=== PATIENT | female | born 2005 | race Caucasian/White ===

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

== ENCOUNTER 2025-05-03 09:08 | Emergency (ER) | payer OTHER, SELFPAY ==
--- OUTSIDE RECORDS SUMMARY | 2025-04-23 08:00 | XMS_ITS | Encounter Summary ---
Author Organization [facility] Healthcare Address [address] [place] [address] Care Team Providers Care Coding Compliance Auditor Name Role Phone Yadira Delgado MD Primary Care Provider [phone] Karen Colbert GLOST KILN OPERATOR Unavailable [phone] Reason for Referral * OBGYN (Urgent) - Closed Specialty Diagnoses / Procedures Referred By Contac t Referred To Contact Obstetrics and Gynecology Diagnoses Vaginal bleeding Procedures [place] OFFICE/OUTPATIENT [facility], [facility] MDM 60 MINUTES Sita Harrison NP [address] [place] [address] Phone: tel: fax: Jorge Yin, DO [address] [place] [address] Phone: tel: fax: Referral ID Status Reason Start Date Expiration Date V isits Requested Visits Authorized [id number] Closed Specialty Services Required 04/23/2025 10/20/2025 1 1 Reason for Visit * Reason Comments Annual Exam Rash on right inner thigh, cyst on right middle finger, check on that she had few months ago. Encounter Details Date Type Department Care Team (Late st Contact Info) Description 04/23/2025 8:00 AM EDT Office Visit [facility] [address] [place] [id number] Sita Harrison NP [address] [place], [place] [id number] Encounter for wellness examination (Primary Dx); Vaginal bleeding; Dermatitis Social History Tobacco Use Types Packs/Day Years Used Date Smoking Tobacco: Never Smokeless Tobacco: Never Alcohol Use Standard Drinks/Week Comments Never 0 (1 standard drink = 0.6 oz pur e alcohol) caffeine intake: 0 PHQ-2 Answer Date Recorded Patient Health Questionnaire-2 Score 0 04/23/2025 Comments Unknown Sex and Gender Information Value Date Recorded Sex Assigned at Not on file Legal Sex Female 7:25 PM EDT Gender Identity Not on file Sexual Orientation Not on file documented as of this encounter Last Filed Vital Signs Vital Sign Reading Time Taken Comments Blood Pressure 112/60 04/23/2025 8:06 AM EDT Pulse 68 04/23/2025 8:06 AM EDT Temperature - - Respiratory Rate - - Oxygen Saturation 98% 04/23/2025 8:06 AM EDT Inhaled Oxygen Concentration - - Weight 52.2 kg (115 lb) 04/23/2025 8:06 AM EDT Height - - Body Mass Index 19.43 12/05/2024 9:04 AM EDT documented in this encounter Functional Status * Over the past 2 weeks, how often have you been bothered by any of the following problems? Question Answer Date of Assessment Author Little interest or pleasure in doing things Not at all 04/23/2025 8:06 AM EDT Thu Kunz M A Feeling down, depressed, or hopeless Not at all 04/23/2025 8:06 AM EDT Thu Kunz M A Patient Health Questionnaire -2 Score 0 04/23/2025 8:06 AM EDT Thu Kunz M A documented as of this encounter Progress Notes * Sita Harrison NP - 04/23/2025 8:00 AM EDT Images from the original note were not included. Subjective ?Quick Links Last Note in Specialty Snapshot Edit RFV/CC Edit Screenings Current Meds Patient ID: Vilma Correa is a 19 y.o. female who presents for Annual Exam (Rash on right inner thigh, cyst on right middle finger, check on that she had few months ago. ). HPI History of Present Illness The patient presents for a wellness visit and abnormal uterine bleeding. She reports no chest pain or shortness of breath. Her constipation has resolved. She does not regularly see an eye doctor or dentist and declines the influenza vaccine. She has been experiencing continuous bleeding since her last visit in 01/2025, which she describes as brown in color. The bleeding varies in intensity, sometimes heavy and at other times light, but it has been consistent. She occasionally experiences cramping that lasts for a few minutes. A test conducted 3 weeks after taking the pill was negative, and subsequent tests have also been negative. She has not been sexually active recently and is open to the use of control. [facility]. She also is concerned about a rash to her inner right thigh. Has been there for about 2 months. Hasbeen using antibiotic cream and Vaseline daily. Has improved since it iniitally started but has notfully resolved. It is itchy at times but she tries to refrain from scratching. Occupation: Works at [employer]. She is saving for [employer] and planning on pursuing cosmetology. GYNECOLOGICAL HISTORY: - Frequency and Flow: Continuous bleeding since 01/2025, brown in color, varying intensity - Menstrual Pain: Occasional cramping lasting a few minutes ?Quick Review Review Full History Edit History Meds - polyethylene glycol, PEG, 3350 (MiraLax) 17 GM/SCOOP powder Vit-Fe Fumarate-FA (/Iron) 28-0.8 MG tablet --- PMH - ADHD (attention deficit hyperactivity disorder) Appendicitis Gastroesophageal reflux disease Major depressive disorder, single episode, moderate (HCC) Other insomnia Raynaud's disease without gangrene Scarlet fever Objective ?Quick Links Add Vitals Timeline (Adult) Labs Imaging Results Review Trend Vitals ?? Avoid pulling in long tables of results. Comment on relevant results to support your medical decision making. BP 112/60 (BP Location: Right arm, Patient Position: Sitting, BP Cuff Size: Small adult) Pulse 68 Wt 115 lb SpO2 98% BMI 19.43 kg/m?? Physical Exam Vitals reviewed. Constitutional: Appearance: Normal appearance. HENT: Head: Normocephalic and atraumatic. Right Ear: Tympanic membrane normal. Left Ear: Tympanic membrane normal. Nose: Nose normal. Mouth/Throat: Mouth: Mucous membranes are moist. Eyes: Extraocular Movements: Extraocular movements intact. Pupils: Pupils are equal, round, and reactive to light. Cardiovascular: Rate and Rhythm: Normal rate and regular rhythm. Pulses: Normal pulses. Heart sounds: Normal heart sounds. Pulmonary: Effort: Pulmonary effort is normal. Breath sounds: Normal breath sounds. Abdominal: General: Bowel sounds are normal. Palpations: Abdomen is soft. Tenderness: There is no abdominal tenderness. Musculoskeletal: Cervical back: Normal range of motion and neck supple. Right lower leg: No edema. Left lower leg: No edema. Skin: General: Skin is warm and dry. Capillary Refill: Capillary refill takes less than 2 seconds. Findings: No rash. Neurological: General: No focal deficit present. Mental Status: She is alert and oriented to person, place, and time. Physical Exam ?Quick Links Full Problem List Cardiology GI Assessment & Plan Encounter for wellness examination Vaginal bleeding Orders: CBC and differential; Future Ferritin; Future HCG, quantitative, ; Future US pelvis transvaginal; Future Ambulatory referral to Obstetrics / Gynecology; Future Dermatitis Orders: triamcinolone (Kenalog) 0.1 % cream; Apply topically in the morning and before bedtime. Do all thisfor 7 days. Apply thin layer. -Initiate topical steroids. Moisturize regularly. Assessment & Plan 1. Wellness visit: - She was advised to schedule appointments with an fishery biologist and a dentist. The importance ofreceiving the influenza vaccine was emphasized, but she declined. -Wellness performed at today. Height, weight, BMI, problem list, and immunizations records reviewed. Dental care discussed with patient. Encouraged annual vision screenings and semi-annual dental care. Encouraged healthy eating habits, limit or eliminate junk food and sources of excess calories.Encouraged regular periods of exercise, 150 minutes of exercise weekly or amount appropriate to current level of function. Discussed family/friend/social support and importance of maintaining emotional connections. Follow up annually and as needed. 2. Abnormal uterine bleeding: - She has been experiencing persistent bleeding since taking a pill in January or February. The bleedinghas been characterized by dark brown blood, varying from heavy to light flow. She reported occasional cramping that lasts only a few minutes. - There is a concern about potential retained products of conception, which may be causing the continued bleeding. Blood work will be ordered today, as well as an US - A referral to an TUBER HELPER will be made for further evaluation and management. - She is open to OCP however will have her see OBGYN first before starting any medication. She is agreeable to this plan. documented in this encounter Plan of Treatment Upcoming Encounters Date Type Department Care Team (Late st Contact Info) Description 05/05/2025 8:30 AM EDT Ancillary Procedure [facility] [place] [facility] [address] [place] [id number] Scheduled Orders Name Type Priority Associated Diagnoses Orde r Schedule US pelvis transvaginal Imaging High Priority Vaginal bleeding Expected: 04/23/2025, Expires: 04/23/2026 Scheduled Referrals Name Type Priority Associated Diagnoses Order Schedule Ambulatory referral to Obstetrics / Gynecology Outpatient Referral High Priority Vaginal bleeding Expected: 04/23/2025 (Approximate), Expires: 10/22/2025 documented as of this encounter Procedures Procedure Name Priority Date/Time Associated Diagnosis Comments CBC (INCLUDES DIFF/PLT) Routine 04/23/2025 8:28 AM EDT Vaginal bleeding HCG, TOTAL, QN Routine 04/23/2025 8:28 AM EDT Vaginal bleeding FERRITIN Routine 04/23/2025 8:28 AM EDT Vaginal bleeding documented in this encounter Results * HCG, quantitative, (04/23/2025 8:28 AM EDT) HCG, TOTAL, QN <5 mIU/mL [facility] Comment: Reference Range Non or premenopausal <5 Postmenopausal <10 Values from different assay methods may vary. The use of this assay to monitor or to diagnose patients with cancer or any condition unrelated to has not been cleared or approved by the FDA or the dextrine mixer of the assay. Blood Venous blood specimen / Unknown 04/23/2025 8:28 AM EDT 04/23/2025 3:33 PM EDT Narrative Resulting Agency Comment Performing Organization Information Site ID: QPT Name: [facility] Address: [address] [place] [address], [address] [place] [phone] Director: Victor M Guardado MD Sita Harrison GLOST KILN OPERATOR LAB BLOOD ORDERABLES Final Resu lt Performing Organization Address City/[facility]/ZIP Co de Phone Number [facility] * Ferritin (04/23/2025 8:28 AM EDT) [facility] FERRITIN 23 16 - 154 ng/mL [facility] Blood Venous blood specimen / Unknown 04/23/2025 8:28 AM EDT 04/23/2025 3:33 PM EDT Narrative Resulting Agency Comment Performing Organization Information Site ID: QPT Name: [facility] Address: [address] [place] [address], [address] [place] [phone] Director: Victor M Guardado MD Sita Harrison GLOST KILN OPERATOR LAB BLOOD ORDERABLES Final Resu lt Performing Organization Address City/[facility] Co de Phone Number [facility] * (ABNORMAL) CBC and differential (04/23/2025 8:28 AM EDT) [facility] WHITE BLOOD CELL COUNT 4.3 3.8 - 10.8 Thousand/u L [facility] RED BLOOD CELL COUNT 4.75 3.80 - 5.10 Million/uL [facility] HEMOGLOBIN 13.8 11.7 - 15.5 g/dL [facility] HEMATOCRIT 42.4 35.0 - 45.0 % [facility] MCV 89.3 80.0 - 100.0 fL [facility] MCH 29.1 27.0 - 33.0 pg [facility] MCHC 32.5 32.0 - 36.0 g/dL [facility] Comment: For adults, a slight decrease in the calculated MCHC value (in the range of 30 to 32 g/dL) is most likely not clinically significant; however, it should be interpreted with caution in correlation with other red cell parameters and the patient's clinical condition. RDW 13.5 11.0 - 15.0 % [facility] PLATELET COUNT 191 140 - 400 Thousand/u L [facility] MPV 10.7 7.5 - 12.5 fL [facility] ABSOLUTE NEUTROPHILS 1,466(L) 1,500 - 7,800 cells/uL [facility] ABSOLUTE LYMPHOCYTES 2,086 850 - 3,900 cells/uL [facility] ABSOLUTE MONOCYTES 598 200 - 950 cells/uL [facility] ABSOLUTE EOSINOPHILS 120 15 - 500 cells/uL [facility] ABSOLUTE BASOPHILS 30 0 - 200 cells/uL [facility] NEUTROPHILS 34.1 % [facility] LYMPHOCYTES 48.5 % [facility] MONOCYTES 13.9 % [facility] EOSINOPHILS 2.8 % [facility] BASOPHILS 0.7 % [facility] Blood Venous blood specimen / Unknown 04/23/2025 8:28 AM EDT 04/23/2025 3:33 PM EDT Narrative Resulting Agency Comment Performing Organization Information Site ID: QTW Name: [facility] Address: [address] [place] [phone] Director: Maria T Guerrero us Sita Harrison GLOST KILN OPERATOR LAB BLOOD ORDERABLES Final Resu lt [facility] documented in this encounter Visit Diagnoses Diagnosis Encounter for wellness examination- Primary Vaginal bleeding Other specified noninflammatory disorder of vagina Dermatitis Contact dermatitis and other eczema, due to unspecified cause documented in this encounter Care Teams Coding Compliance Auditor Relationship Specialty Start Date End Date Yadira Delgado MD [address] [place] [address] PCP - General Family Medicine 12/01/22 Karen Colbert NP [address] [place] [address] Nurse Practitioner Family Medicine 12/01/22 documented as of this encounter
--- OUTSIDE RECORDS SUMMARY | 2025-04-24 10:15 | XMS_ITS | Encounter Summary ---
Author Organization [facility] Address [address] [place] [address] Care Team Providers Care Poultry Inseminator Name Role Phone Yadira Delgado MD Primary Care Provider [phone] Karen Colbert FINANCIAL AID COUNSELOR Unavailable [phone] Encounter Details Date Type Department Care Team (Late st Contact Info) Description 04/24/2025 10:15 AM EDT Office Visit [facility] [address] [facility] [address] [place] [phone] Dylan Pompa MD [address] [facility] [address] [place] [address] Abnormal uterine bleeding (AUB) Social History Tobacco Use Types Packs/Day Years Used Date Smoking Tobacco: Never Smokeless Tobacco: Never Alcohol Use Standard Drinks/Week Comments Never 0 (1 standard drink = 0.6 oz pur e alcohol) caffeine intake: 0 PHQ-2 Answer Date Recorded Patient Health Questionnaire-2 Score 0 04/23/2025 Comments No Sex and Gender Information Value Date Recorded Sex Assigned at Not on file Legal Sex Female 7:25 PM EDT Gender Identity Not on file Sexual Orientation Not on file documented as of this encounter Last Filed Vital Signs Vital Sign Reading Time Taken Comments Blood Pressure 112/68 04/24/2025 10:12 AM EDT Pulse - - Temperature - - Respiratory Rate - - Oxygen Saturation - - Inhaled Oxygen Concentration - - Weight 50.8 kg (112 lb) 04/24/2025 10:12 AM EDT Height - - Body Mass Index 18.93 12/05/2024 9:04 AM EDT documented in this encounter Progress Notes * Dylan Pompa MD - 04/24/2025 10:15 AM EDT Images from the original note were not included. Dylan Pompa MD Obstetrics and Gynecology Patient: Vilma Correa, : 2005 (19 y.o.) DOS 04/24/25 Exam Date: 04/24/2025 HPI: Referred by [facility] for abnormal bleeding She typically has regular/monthly menses. NO BC In January, she had a medication TAB. It sounds like she passed the tissue, but she has been bleeding lightly every day since. No pain/cramping. Still, no BC Visit Vitals BP 112/68 Wt 112 lb LMP (LMP Unknown) BMI 18.93 kg/m?? OB Status Having periods Smoking Status Never BSA 1.52 m?? OB History Para Term AB Living 1 0 0 0 1 0 SAB IAB Ectopic Multiple Live Births 0 0 0 0 0 # Outcome Date GA Lbr Rory/2nd Weight Sex Type Anes PTL Lv 1 AB Obstetric Comments No control; every month, normal blood loss, LMP: Unsure Medication and Allergies Medication Documentation Review Audit Reviewed by Judy Sims MA (Floorhand) on 04/24/25 at 1013 Medication Order Taking? Sig Documenting Provider Last Dose Status Patient not taking: Discontinued 04/24/25 1011 Patient not taking: Discontinued 04/24/25 1011 Discontinued 04/24/25 1013 No Known Allergies Past Medical History: Diagnosis Date ADHD (attention deficit hyperactivity disorder) Appendicitis Gastroesophageal reflux disease 01/23/2023 Major depressive disorder, single episode, moderate (HCC) 12/04/2019 Other insomnia 08/08/2019 Raynaud's disease without gangrene 01/23/2023 Scarlet fever Past Surgical History: Procedure Laterality Date APPENDECTOMY 07/2019 Physical Exam: Objective Physical Exam Constitutional: Appearance: Normal appearance. Genitourinary: Vulva normal. Vaginal bleeding present. No vaginal discharge. Right Adnexa: not palpable. Left Adnexa: not palpable. No cervical lesion. Uterus is not enlarged or tender. Pulmonary: Effort: Pulmonary effort is normal. Abdominal: General: Abdomen is flat. Palpations: Abdomen is soft. Neurological: Mental Status: She is alert. Assessment/Plan ICD-10-CM 1. Abnormal uterine bleeding (AUB) N93.9 POCT , urine manually resulted Exam is normal. Check urine HCG. Check sono. She declines BC. I expect her menses will return to normal. Orders Placed This Encounter Procedures POCT , urine manually resulted documented in this encounter Plan of Treatment Upcoming Encounters Date Type Department Care Team (Late st Contact Info) Description 05/05/2025 8:30 AM EDT Ancillary Procedure [facility] [place] [facility] [address] [place] [phone] documented as of this encounter Procedures Procedure Name Priority Date/Time Associated Diagnosis Comments POCT , URINE Routine 04/24/2025 10:26 AM EDT Abnormal uterine bleeding (AUB) documented in this encounter Results * POCT , urine manually resulted (04/24/2025 10:26 AM EDT) Preg Test, Ur Negative Negative Urine 04/24/2025 10:2 6 AM EDT us Dylan Pompa MD POINT OF CARE TEST ENTER/EDIT ORDERABLES Final Result documented in this encounter Visit Diagnoses Diagnosis Abnormal uterine bleeding (AUB) documented in this encounter Care Teams Poultry Inseminator Relationship Specialty Start Date End Date Yadira Delgado MD [address] [place] [address] PCP - General Family Medicine 12/01/22 Karen Colbert NP [address] [place] [address] Nurse Practitioner Family Medicine 12/01/22 documented as of this encounter
[2025-05-03 09:12] VITALS: BP 100/68; PULSE 62; TEMP 36.9; O2SAT 95; BMI 19.1
--- NOTE | 2025-05-03 09:17 | ED.GENADUL1 ---
HPI HPI - General Adult General Chief complaint: Extremity Injury, Upper Stated complaint: FINGER LACERATION - [facility] Time Seen by Provider: 05/03/25 09:11 History of Present Illness HPI narrative: 19-year-old female presented to the emergency department for a laceration to her right index finger sustained at work 30 minutes ago. 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 Last tetanus shot was 7 years ago. No other injury was sustained. Related Data Home Medications ?Medication ?Instructions ?Recorded ?Confirmed ondansetron 4 mg disintegrating mg 07/31/24 tablet oseltamivir 75 mg capsule mg 07/31/24 Allergies Allergy/AdvReac Type Severity Reaction Status Date / Time No Known Drug Allergies Allergy Verified 05/03/25 09:12 Review of Systems ROS Narrative A ten point review of systems is negative except as noted above. PFSH PFSH Social History Little interest or pleasure in doing things: not at all Feeling down, depressed, or hopeless: not at all Exam Narrative Exam Narrative: Nurses note and vital signs reviewed General:The patient appears well and in no apparent distress. Skin:Warm, dry, no pallor noted.There is no rash noted. Head:Normocephalic, atraumatic Eye: Normal conjunctiva, no drainage Ears, Nose, Mouth, and Throat: oral mucosa is moist. Nares patent. Cardiovascular:Regular Rate and Rhythm Respiratory:Patient is in no distress, no accessory muscle use, lungs are clear to auscultation, no wheezing, rales or rhonchi Back:non-tender GI: Soft and nontender Musculoskeletal: The right hand is examined. There is a small skin avulsion approximately 3 mm in diameter at the distal aspect of right index finger. No other wound is present. The nail and nailbed are unaffected. Neurological:A&O, normal speech Psychiatric:Cooperative Medical Decision Making MDM Narrative Medical decision making narrative: Tetanus status is already up-to-date. Gelfoam and tube gauze were applied, application checked by me and found to be appropriate, she is neurovascular intact. Treatment diagnosis and follow-up were discussed with the patient. Differential Diagnosis Differential Diagnosis: Laceration, avulsion Discharge Plan Discharge Chief Complaint: Extremity Injury, Upper Clinical Impression: Avulsion of skin of finger Patient Disposition: Home, Self-Care Time of Disposition Decision: 09:16 Condition: Good Mode of Transportation: Private Vehicle Prescriptions / Home Meds: No Action oseltamivir 75 mg capsule ondansetron 4 mg tablet,disintegrating Print Language: Syrian Instructions: Skin Avulsion (ED) Additional Instructions: Leave dressing on for 48 hours. Remove and apply bandage daily. Referrals: CHIKA SOTO [Primary Care Provider, Family Practice] - 1 week
--- OUTSIDE RECORDS SUMMARY | 2025-05-03 09:17 | XMS_ITS | CCD ---
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 Role Phone KEN DUNN Attending Unavailable KEN DUNN Consulting Unavailable BRITTANY, DR FARR Primary Care Unavailable KEN DUNN Admitting Unavailable KEN DUNN Consulting Unavailable BRITTANY, DR FARR Primary Care Unavailable KEN DUNN Admitting Unavailable KEN DUNN Attending Unavailable REINA KRISHNAMURTHY Admitting Unavailable BRITTANY, DR FARR Primary Care Unavailable DANIEL TOVAR Consulting Unavailable REINA KRISHNAMURTHY Attending Unavailable REINA KRISHNAMURTHY Consulting Unavailable Marie Varela Unavailable Judy Rosen Unavailable Yadira Soto MD Primary Care Provider Filemon ELVY, Karen Perez Unavailable YADIRA SOTO Primary Care Unavailable CALLIE WILCOX Attending Unavailable Yadira Castillo MD Primary Care Pr ovider Judy Rosen APRN Attending Provider [phone] PRAVEEN CANADA Attending Unavailab ARMANDO Garcia Attending Unavailable DORA BARTLETT Referring Unavailable ARMANDO HARRISON Attending Unavailable ALIYAH POMPA Attending Unavailable ARMANDO HARRISON Attending Unavailable Medications Current Medications Medication Drug Class(es) Dates Sig (Normalized) Sig (Original) [id number] 200 actuat albuterol 0.09 mg/actuat metered dose inhaler (1 source) beta2-Adrenergic Agonist Start: 08-27-2020 take 2 puff(s) by inhalation every six hours as needed Albuterol Sulfate HFA 108 (90 Base) MCG/ACT 2 puffs as needed Inhalation every 6 hrs Aug, Active amoxicillin 500 mg oral capsule (1 source) Penicillin-class Antibacterial Start: 03-27-2022 take 1 capsule by mouth three times daily Amoxicillin 500 MG 1 capsule Orally 3 times per day for 7 days Mar, Active azithromycin 250 mg oral tablet (3 sources) Macrolide Antimicrobial Start: 08-28-2023 azithromycin (Zithromax) 250 MG tablet take 2 tablets by mouth TODAY then take 1 tablet DAILY FOR 4 DAYS 0 08/28/2023 Active brompheniramine maleate 0.4 mg/ml / dextromethorphan hydrobromide 2 mg/ml / pseudoephedrine hydrochloride 6 mg/ml oral solution (1 source) alpha-Adrenergic Agonist, Uncompetitive X-culilk-E-aspartat e Receptor Antagonist, Sigma-1 Agonist Start: 03-22-2025 take 1 mL by mouth every four to six hours as needed Brompheniramine-P seudoeph-Dm (Bromfed Dm) 2-30-10 mg/5 mL syrup Active 10 ML PO EVERY 4-6 HOURS as needed for sinus symptoms 118 March 22, 2025 12:00am Complies with drug therapy ondansetron 4 mg disintegrating oral tablet (4 sources) Serotonin-3 Receptor Antagonist Start: 03-22-2025 take 1 tablet by mouth every eight hours as needed for nausea and vomiting Ondansetron 4 mg tablet,disintegra ting Active 4 MG PO Every 8 hours as needed for nausea and vomiting 12 March 22, 2025 12:00am Complies with drug therapy Start: 07-29-2024 End: 09-25-2024 take 1 tablet by mouth every eight hours as needed for nausea and vomiting Ondansetron 4 mg tablet,disintegrating Discontinued 4 MG PO Every 8 hours as needed for nausea and vomiting 7 July 29, 2024 1:00am September 25, 2024 5:22pm polyethylene glycol 3350 [id number] mg powder for oral solution (8 sources) Osmotic Laxative Start: 01-14-2025 End: 04-24-2025 take 4-8 [oz_av] by mouth once daily polyethylene glycol, PEG, 3350 (MiraLax) 17 GM/SCOOP powder Indications: Slow transit constipation Take 17 g by mouth Daily Mix in 4-8 oz of liquid 527 g 01/14/2025 04/24/2025 Discontinued (Ineffective) Vit-Fe Fumarate-FA (/Iron) 28-0.8 MG tablet (8 sources) Start: 01-14-2025 End: 04-24-2025 take 1 tablet by mouth once daily Vit-Fe Fumarate-FA (/Iron) 28-0.8 MG tablet Indications: Positive test ([facility]) Take 1 tablet by mouth Daily 90 tablet 1 01/14/2025 04/24/2025 Discontinued (Ineffective) Start: 01-14-2025 End: 04-23-2025 take 1 tablet by mouth once daily Vit-Fe Fumarate-FA (/Iron) 28-0.8 MG tablet Indications: Positive test ([facility]-HCC) Take 1 tablet by mouth Daily 90 tablet 1 01/14/2025 04/23/2025 Discontinued (Therapy completed) Start: 01-14-2025 take 1 tablet by supriya th once daily Vit-Fe Fumarate-FA (/Iron) 28-0.8 MG tablet Indications: Positive test ([facility]) Take 1 tablet by mouth Daily 90 tablet 1 01/14/2025 Active triamcinolone acetonide 1 mg/ml topical cream (5 sources) Corticosteroid Start: 04-23-2025 End: 04-30-2025 triamcinolone (Kenalog) 0.1 % cream Indications: Dermatitis Apply topically in the morning and before bedtime. Do all this for 7 days. Apply thin layer. 45 g 04/23/2025 04/24/2025 Discontinued (Ineffective) Completed/Discontinued Medications Medication Drug Class(es) Dates Sig (Normalized) Sig (Original) dextromethorphan hydrobromide 15 mg / guaiFENesin 400 mg / pseudoephedrine hydrochloride 60 mg oral tablet (2 sources) alpha-Adrenergic Agonist, Uncompetitive X-bcjwus-S-aspartat e Receptor Antagonist, Sigma-1 Agonist Start: 09-25-2024 End: 03-22-2025 take 4 tablets by mouth every twenty-four hours as needed Pseudoephedrine-D m-Guaifenesin (Capmist Dm) 60-15-400 mg tablet Discontinued 1 TAB PO EVERY 4-6 HOURS as needed for cold symptoms September 25, 2024 12:00am March 22, 2025 12:41pm do not exceed 4 doses per 24 hrs dextromethorphan hydrobromide 1.5 mg/ml / pyrilamine maleate 1.5 mg/ml oral solution (3 sources) Uncompetitive P-escgql-R-aspartat e Receptor Antagonist, Sigma-1 Agonist Start: 07-26-2022 [place] DM 7.5-7.5 MG/5ML 10 ml Orally every 6-8 hours as needed for 8 days Jul, Not-Taking/PRN levonorgestrel-ethinyl estrad 0.1-20 mg-mcg tablet (4 sources) Progestin, Estrogen, Progestin-containin g Intrauterine Device Levonorgestrel-Et hinyl Estrad 0.1-20 MG-MCG Oral for 28 Not-Taking/PRN Levonorgestrel-E thinyl Estrad 0.1-20 MG-MCG Oral for 28 Active oseltamivir 75 mg oral capsule (3 sources) Neuraminidase Inhibitor Start: 07-29-2024 End: 09-25-2024 take 1 capsule by mouth twice daily Oseltamivir (Tamiflu) 75 mg capsule Discontinued 75 MG PO Twice daily 04 20July 29, 2024 1:00am September 25, 2024 5:22pm Pnv No.95-Ferrous Fumarate-Fa () 28 mg iron- 800 mcg tablet (1 source) Start: 03-22-2025 End: 03-22-2025 Pnv No.95-Ferrous Fumarate-Fa () 28 mg iron- 800 mcg tablet Discontinued TAB PO March 22, 2025 12:00am March 22, 2025 12:45pm Problems Active Problems Problem Classification Problem Date Documented Da te Episodic/Chronic Abdominal pain (2 sources) Abdominal pain Onset: 4 Episodic Allergic reactions (2 sources) Inflammatory dermatosis; Translations: [Dermatitis, unspecified] 04-23-2025 Episodic Anxiety disorders (20 sources) Obsessional thoughts; Translations: [Mixed obsessional thoughts and acts] Onset: 1 01-23-2023 Chronic Bacterial infection; unspecified site (1 source) Other specified bacterial agents as the cause of diseases classified elsewhere Episodic Esophageal disorders (20 sources) Gastroesophageal reflux disease; Translations: [Gastro-esophageal reflux disease without esophagitis] Onset: 3 01-23-2023 Chronic Gastrointestinal hemorrhage (2 sources) Blood-tinged feces; Translations: [Melena] 07-12-2024 Episodic Immunizations and screening for infectious disease (7 sources) Encounter for immunization; Translations: [Contact with and (suspected) exposure to other viral communicable diseases] Onset: 1 Resolved: 2 Episodic Influenza (5 sources) Influenza due to Influenza A virus; Translations: [Influenza due to other identified influenza virus with other respiratory manifestations] 07-29-2024 Episodic Menstrual disorders (20 sources) Irregular periods; Translations: [Irregular menstruation, unspecified] Onset: 3 12-08-2022 Chronic Mood disorders (20 sources) Moderate major depression, single episode; Translations: [Major depressive disorder, single episode, moderate] Onset: 0 01-23-2023 Chronic Nausea and vomiting (5 sources) Nausea; Translations: [Nausea] 07-29-2024 Episodic Other circulatory disease (20 sources) Raynaud's disease; Translations: [Raynaud's syndrome without gangrene] Onset: 3 01-23-2023 Chronic Other female genital disorders (5 sources) Vaginal bleeding; Translations: [Abnormal uterine and vaginal bleeding, unspecified] Onset: 4 04-23-2025 Chronic Other female genital disorders (2 sources) Abnormal uterine bleeding; Translations: [Abnormal uterine and vaginal bleeding, unspecified] 04-24-2025 Chronic Other gastrointestinal disorders (2 sources) Slow transit constipation; Translations: [Slow transit constipation] 01-14-2025 Episodic Other lower respiratory disease (3 sources) Cough; Translations: [COUGH] Onset: 1 Episodic Other and delivery including normal (2 sources) test positive; Translations: [Encounter for test, result positive] 01-14-2025 Episodic Other upper respiratory disease (2 sources) Nasal congestion; Translations: [Nasal congestion] 08-30-2023 Episodic Other upper respiratory infections (14 sources) Acute upper respiratory infection, unspecified; Translations: [Acute pharyngitis, unspecified] Onset: 1 Episodic Residual codes; unclassified (20 sources) Insomnia; Translations: [Other insomnia] Onset: 0 01-23-2023 Chronic Unclassified (1 source) CONTACT W/AND (SUSP) EXPOS COVID-19; Translations: [CONTACT W/AND (SUSP) EXPOS COVID-19] Onset: Past or Other Problems Problem Classification Problem Date Documented Date Episodic/Chronic Anxiety disorders (20 sources) Irritability and anger; Translations: [Irritability and anger] Onset: 11-16-2020 01-23-2023 Episodic Nonmalignant breast conditions (4 sources) Lump in right breast; Translations: [Unspecified lump in the right breast, unspecified quadrant] 03-22-2024 Episodic Other female genital disorders (20 sources) Hypertrophy of vulva; Translations: [Unspecified hypertrophy of vulva] Onset: 01-23-2023 01-23-2023 Episodic Other nervous system disorders (20 sources) Limping; Translations: [Other abnormalities of gait and mobility] Onset: 01-23-2023 01-23-2023 Episodic Otitis media and related conditions (1 source) Otitis media, unspecified, right ear Onset: 03-27-2022 Resolved: 03-27-2022 Episodic Viral infection (1 source) COVID-19 Onset: 03-27-2022 Resolved: 03-27-2022 Results Test Name Value Interpretation Reference Range Facility HCG ( test) Ql (U)o n 04-24-2025 Preg Test, Ur Negative Negative [facility] US OB < 14 WEEKS EARLYon US OB < 14 WEEKS EARLY FINDINGS: A single intrauterine gestational sac is present. No subchorionic hemorrhage. A single pole is present. Normal heart rate at 193 beats per minute. Yolk sac also is seen. Current sonographic age is 10 weeks and 1 days based on the crown-rump length measurement of 3.3cm. Based on this age, current estimated date of delivery is August 21, 2025 No pelvic fluid or adnexal mass present. Cervical length is 3.6 cm. IMPRESSION: Findings consistent with a live intrauterine gestation, current sonographic age of 10 weeks and 1 days resulting in an estimated date of delivery of August 21, 2025. TRANSCRIBED BY: ELECTRONICALLY SIGNED BY: Sourav Marquez MD Normal Not Available HCG ( test) Ql (U)O rdered By: Agnes Jefferson on 01-14-2025 Interpretation and review of laboratory results Abnormal [facility] Preg Test, Ur Positive Negative [facility] No Panel InformationOrdered By: Judy Rosen on 09-25-2024 Quick Strep (POC) [facility] Influenza virus B Ag [Presen ce] in Upper respiratory specimen by Rapid immunoassayon 07-29-2024 FLUBV Ag IA.rapid Ql (Nph) Influenza virus B Ag [Presence] in Upper respiratory specimen by Rapid immunoassay [facility] No Panel Informationon 07-29 Influenza Type A (Rapid) Positive [facility] POC SARS CoV-2 Antigen Negative [facility] HCG ( test) Ql (U)O rdered By: Lucy Moore on 07-12-2024 Preg Test, Ur Negative Negative [facility] HCG ( test) Ql (U)o n 02-02-2024 Beta HCG ( test) Ql (U) Negative Normal NEG [facility] Comment on above: Performed By: #### 2 106-3 #### [facility] ([id number]) [address] [place] [id number] UA (MICROSCOPIC)on 4 R.B.CELLS >100 High 0-5 [facility] Comment on above: Performed By: #### U MIRELLA #### [facility] ([id number]) [address] [place] [id number] SQUAMOUS EPITHELIUM 1 /hpf Normal 0-5 [facility] Comment on above: Performed By: #### U MIRELLA #### [facility] ([id number]) [address] [place] [phone] Urinalysis dipstick W Reflex Microscopic panel (U) Results maybe affected due to High RBC count, interpretwith caution. Normal [facility] Comment on above: Performed By: #### U MIRELLA #### [facility] ([id number]) [address] [place] [address] [phone] W.B.CELLS 3 /hpf Normal 0-5 [facility] Comment on above: Performed By: #### U MIRELLA #### [facility] ([id number]) [address] [facility] [place] [address] Laboratory - Microbiology an d Antimicrobial susceptibilityon 08-30-2023 SARS-CoV-2 (COVID-19) RNA LIANA+probe Ql (Unsp spec) Negative [facility] No Panel Informationon 08-30 FLU A Negative [facility] FLU B Negative [facility] Interpretation and review of laboratory results Normal [facility] COVID/FLU/RSV RT-PCRon 07-26 SARS-CoV-2 (COVID-19) RNA LIANA+probe Ql (Unsp spec) Negative [employer] Other COVID/FLU/RSV RT-PCR Negative [facility] [employer] Other Quick Strepon 07-26-2022 S. pyogenes Org specific cx Ql (Throat) Negative [employer] Other Quick Strep [employer] Other COVID Quick Testingon 2021 Result Positive [employer] Other CULTURE THROATon 03-22-2021 CULTURE THROAT Culture Observations: NORMAL RESPIRATORY ORALIA. Normal [facility] Comment on above: Performed By: #### S SCRN, THRTCX #### [facility] [address] [id number] Mara Fernandez Covid-19 PCR (CVDTBH)on SARS-CoV-2 (COVID-19) RNA LIANA+probe Ql (Unsp spec) Not detected Normal NOT DETECTED [facility] Comment on above: Result Comment: This test is not yet approved or cleared by the [place] FDA. When there are no FDA-approved or cleared tests available, and other criteria are met, FDA can make tests available under an emergency access mechanism called an Emergency Use Authorization (EUA). The EUA for this test is supported by the Aprn of Health and Human Service's (HHS's) declaration that circumstances exist to justify the emergency use of in vitro diagnostics for the detection and/or diagnosis of the virus that causes COVID-19. This EUA will remain in effect (meaning this test can be used) for the duration of the COVID-19 declaration justifying emergency of IVDs, unless it is terminated or revoked by FDA (after which the test may no longer be used). When diagnostic testing is negative, the possibility of a false negative should be considered in the context of a patient's recent exposures and the presence of clinical signs and symptoms consistent with SARS-CoV-2. Performed By: #### C VDAGS, CVDTBH #### [facility] [address] [place] [address] Mara Fernandez STREPT SCREENon 03-22-2021 STREP SCREEN A Negative Normal NEGATIVE [facility] Comment on above: Performed By: #### S SCRN, THRTCX #### [facility] [address] [place] [address] Mara Rebecca SYMPTOMATIC COVID-19 ANTIGEN on 03-22-2021 EUA Statement SEE BELOW Normal [facility] Comment on above: Result Comment: This test has not been FDA cleared or approved, but has been authorized by the FDA under an Emergency Use Authorization (EUA) for use by authorized laboratories certified under CLIA that meet the requirements to perform moderate or high complexity testing. This test has been authorized only for the detection of proteins from SARS-CoV-2, not for any other viruses or pathogens. The emergency use of this test is authorized for the duration of the declaration that circumstances exist justifying the authorization of emergency use of in vitro diagnostic tests for detection and/or diagnosis of Covid-19 under section 564(b)(1) of the Act, 21 U.S.C. 360bbb-3(b)(1), unless the declaration is terminated or authorization is revoked sooner. Performed By: #### C VDAGS, CVDTBH #### [facility] [address] [place] [address] Rebecca SARS-CoV-2 (COVID-19) RNA LIANA+probe Ql (Unsp spec) Negative Normal NEGATIVE [facility] Comment on above: Result Comment: CONF IRMATION BY PCR PENDING PER CDC GUIDELINES/ SYMPTOMATIC PATIENT. Performed By: #### C VDAGS, CVDTBH #### [facility] [address] [place] [address] Mara Fernandez Vital Signs Date Time Vital Sign Value Performing Clinician Facility 04-24-2025 10:12-0400 Body mass index (BMI) [Ratio] 18.93 kg/m2 Aliyah Pompa MD Work Phone: [facility] 04-24-2025 10:12-0400 Body weight 50.8 kg Aliyah Pompa MD Work Phone: [facility] 04-24-2025 10:12-0400 Diastolic blood pressure 68 mm[Hg] Aliyah Pompa MD Work Phone: [facility] 04-24-2025 10:12-0400 Systolic blood pressure 112 mm[Hg] Aliyah Pompa MD Work Phone: [facility] 04-23-2025 08:06-0400 Body mass index (BMI) [Ratio] 19.43 kg/m2 Armando Christy [employer] Work Phone: [facility] 04-23-2025 08:06-0400 Body weight 52.16 kg Armando Dioprob [employer] Work Phone: [facility] 04-23-2025 08:06-0400 Diastolic blood pressure 60 mm[Hg] Armando Dioprob [employer] Work Phone: [facility] 04-23-2025 08:06-0400 Heart rate 68 /min Armando Dioprob [employer] Work Phone: [facility] 04-23-2025 08:06-0400 SaO2% (BldA) [Mass fraction] 98 % Armando Christy [employer] Work Phone: [facility] 04-23-2025 08:06-0400 Systolic blood pressure 112 mm[Hg] Armando Dioprob [employer] Work Phone: [facility] 03-22-2025 12:42-0400 Body height 165.1 cm Yadira Soto MD Work Phone: [facility] 03-22-2025 12:42-0400 Body mass index (BMI) [Percentile] Per age and sex 20 % Yadira Soto MD Work Phone: [facility] 03-22-2025 12:42-0400 Body mass index (BMI) [Ratio] 19.4 kg/m2 Yadira Soto MD Work Phone: [facility] 03-22-2025 12:42-0400 Body temperature 99.5 [degF] Yadira Soto MD Work Phone: [facility] 03-22-2025 12:42-0400 Body weight 53.07 kg Yadira Soto MD Work Phone: [facility] 03-22-2025 12:42-0400 Diastolic blood pressure 75 mm[Hg] Yadira Soto MD Work Phone: [facility] 03-22-2025 12:42-0400 Heart rate 103 /min Yadira Soto MD Work Phone: [facility] 03-22-2025 12:42-0400 Respiratory rate 16 /min Yadira Soto MD Work Phone: [facility] 03-22-2025 12:42-0400 SaO2% (BldA) [Mass fraction] 98 % Yadira Soto MD Work Phone: [facility] 03-22-2025 12:42-0400 Systolic blood pressure 117 mm[Hg] Yadira Soto MD Work Phone: [facility] 01-14-2025 16:24-0400 Body mass index (BMI) [Ratio] 20.21 kg/m2 Armando Harrison NP Work Phone: [facility] 01-14-2025 16:24-0400 Body temperature 97.5 [degF] Armando Harrison [employer] Work Phone: [facility] 01-14-2025 16:24-0400 Body weight 54.25 kg Armando Harrison [employer] Work Phone: [facility] 01-14-2025 16:24-0400 Diastolic blood pressure 76 mm[Hg] Armando Harrison [employer] Work Phone: [facility] 01-14-2025 16:24-0400 Heart rate 107 /min Armando Harrison [employer] Work Phone: [facility] 01-14-2025 16:24-0400 SaO2% (BldA) [Mass fraction] 97 % Armando Harrison [employer] Work Phone: [facility] 01-14-2025 16:24-0400 Systolic blood pressure 118 mm[Hg] Armando Harrison [employer] Work Phone: [facility] 09-25-2024 17:27-0400 Body height 165.1 cm [facility] 09-25-2024 17:27-0400 Body mass index (BMI) [Percentile] Per age and sex 25.7 % [facility] 09-25-2024 17:27-0400 Body mass index (BMI) [Ratio] 19.8 kg/m2 [facility] 09-25-2024 17:27-0400 Body temperature 98.2 [degF] [facility] 09-25-2024 17:27-0400 Body weight 54.09 kg [facility] 09-25-2024 17:27-0400 Diastolic blood pressure 67 mm[Hg] [facility] 09-25-2024 17:27-0400 Heart rate 65 /min [facility] 09-25-2024 17:27-0400 Respiratory rate 18 /min [facility] 09-25-2024 17:27-0400 SaO2% (BldA) [Mass fraction] 99 % [facility] 09-25-2024 17:27-0400 Systolic blood pressure 104 mm[Hg] [facility] 07-29-2024 13:23-0500 Body height 165.1 cm [facility] 07-29-2024 13:23-0500 Body mass index (BMI) [Percentile] Per age and sex 22.1 % [facility] 07-29-2024 13:23-0500 Body mass index (BMI) [Ratio] 19.5 kg/m2 [facility] 07-29-2024 13:23-0500 Body temperature 99.1 [degF] [facility] 07-29-2024 13:23-0500 Body weight 53.12 kg [facility] 07-29-2024 13:23-0500 Diastolic blood pressure 71 mm[Hg] [facility] 07-29-2024 13:23-0500 Heart rate 97 /min [facility] 07-29-2024 13:23-0500 Respiratory rate 19 /min [facility] 07-29-2024 13:23-0500 SaO2% (BldA) [Mass fraction] 98 % [facility] 07-29-2024 13:23-0500 Systolic blood pressure 115 mm[Hg] [facility] 07-12-2024 13:27-0500 Body height 163.8 cm Armando Diopfreemannaresh [employer] Work Phone: [facility] 07-12-2024 13:27-0500 Body mass index (BMI) [Ratio] 20.11 kg/m2 Armando Dioprob [employer] Work Phone: [facility] 07-12-2024 13:27-0500 Body weight 53.98 kg Armando Harrison [employer] Work Phone: [facility] 07-12-2024 13:27-0500 Diastolic blood pressure 64 mm[Hg] Armando Dioprob [employer] Work Phone: [facility] 07-12-2024 13:27-0500 Heart rate 93 /min Armando Dioprob [employer] Work Phone: [facility] 07-12-2024 13:27-0500 SaO2% (BldA) [Mass fraction] 98 % Armando Dioprob [employer] Work Phone: [facility] 07-12-2024 13:27-0500 Systolic blood pressure 108 mm[Hg] Armando Harrison [employer] Work Phone: [facility] 03-22-2024 09:05-0400 Body height 163.8 cm Armando Harrison [employer] Work Phone: [facility] 03-22-2024 09:05-0400 Body mass index (BMI) [Percentile] Per age and sex 13.55 % Armando Harrison [employer] Work Phone: [facility] 03-22-2024 09:05-0400 Body mass index (BMI) [Ratio] 18.73 kg/m2 Armando Harrison [employer] Work Phone: [facility] 03-22-2024 09:05-0400 Body weight 50.26 kg Armando Harrison [employer] Work Phone: [facility] 03-22-2024 09:05-0400 Diastolic blood pressure 70 mm[Hg] Armando Harrison [employer] Work Phone: [facility] 03-22-2024 09:05-0400 Heart rate 87 /min Armando Harrison [employer] Work Phone: [facility] 03-22-2024 09:05-0400 SaO2% (BldA) [Mass fraction] 96 % Armando Harrison [employer] Work Phone: [facility] 03-22-2024 09:05-0400 Systolic blood pressure 106 mm[Hg] Armando Harrison [employer] Work Phone: [facility] 08-30-2023 11:34-0500 Body height 163.8 cm Karen Colbert [employer] Work Phone: [facility] 08-30-2023 11:34-0500 Body mass index (BMI) [Percentile] Per age and sex 15.3 % Karen Colbert [employer] Work Phone: [facility] 08-30-2023 11:34-0500 Body mass index (BMI) [Ratio] 18.76 kg/m2 Karen Colbert [employer] Work Phone: [facility] 08-30-2023 11:34-0500 Body temperature 98.6 [degF] Karen Colbert [employer] Work Phone: [facility] 08-30-2023 11:34-0500 Body weight 50.35 kg Karen Colbert [employer]OM[employer] Work Phone: [facility] 08-30-2023 11:34-0500 Diastolic blood pressure 70 mm[Hg] Karen Colbert [employer] Work Phone: [facility] 08-30-2023 11:34-0500 Heart rate 83 /min Karen Colbert [employer]OM[employer] Work Phone: [facility] 08-30-2023 11:34-0500 SaO2% (BldA) [Mass fraction] 99 % Karen Colbert [employer] Work Phone: [facility] 08-30-2023 11:34-0500 Systolic blood pressure 102 mm[Hg] Karen Colbert [employer] Work Phone: [facility] 08-28-2023 12:25-0500 Body height 161.29 cm Judy Jessika Other [facility] 08-28-2023 12:25-0500 Body mass index (BMI) [Ratio] 19.63 kg/m2 Judy Jessika Other [facility] 08-28-2023 12:25-0500 Body temperature 99.4 [degF] Judy Jessika Other [facility] 08-28-2023 12:25-0500 Body weight 51.08 kg Judy Jessika Other [facility] 08-28-2023 12:25-0500 Respiratory rate 18 /min Judy Jessika Other [facility] 08-28-2023 12:25-0500 SaO2% (BldA) [Mass fraction] 99 % Judyestefania Villatorob Other [facility] Other 07-26-2022 18:00-0500 Body height 161.29 cm Marie Varela Other [facility] Other 07-26-2022 18:00-0500 Body mass index (BMI) [Ratio] 19.11 kg/m2 Marie Varela Other [facility] 07-26-2022 18:00-0500 Body temperature 100.5 [degF] Marie Varela Other [facility] 07-26-2022 18:00-0500 Body weight 49.71 kg Marie Varela Other [facility] Other 07-26-2022 18:00-0500 Respiratory rate 18 /min Marie Varela Other [facility] Other 07-26-2022 18:00-0500 SaO2% (BldA) [Mass fraction] 99 % Marie Varela Other [facility] 03-27-2022 12:30-0400 Body height 162.56 cm Marie Varela Other [facility] 03-27-2022 12:30-0400 Body mass index (BMI) [Ratio] 18.16 kg/m2 Marie Varela Other [facility] Other 03-27-2022 12:30-0400 Body temperature 100.5 [degF] Marie Varela Other [facility] Other 03-27-2022 12:30-0400 Body weight 47.99 kg Marie Varela Other [facility] Other 03-27-2022 12:30-0400 Diastolic blood pressure 72 mm[Hg] Marie Varela Other [facility] Other 03-27-2022 12:30-0400 Respiratory rate 18 /min Marie Varela Other [facility] Other 03-27-2022 12:30-0400 SaO2% (BldA) [Mass fraction] 97 % Marie Varela Other [facility] Other 03-27-2022 12:30-0400 Systolic blood pressure 109 mm[Hg] Marie Varela Other [facility] Other Encounters Encounter Date Encounter Type Care Provider Facility Start: 04-24-2025 End: 04-24-2025 Bamboo flowsrosales Pompa MD Work Phone: [facility] Start: 04-24-2025 End: 04-24-2025 Bamboo flowsheet Aliyah Pompa MD Work Phone: [facility] Start: 04-24-2025 End: 04-24-2025 Office outpatient new 45 minutes Aliyah Pompa MD Work Phone: [facility] Comment on above: Abnormal uterine ble eding (AUB) Start: 04-24-2025 End: 04-24-2025 ambulatory ALIYAH POMPA Not Available Start: 04-23-2025 End: 04-23-2025 Bamboo flowsheet Armando Harrison NP Work Phone: [facility] Start: 04-23-2025 End: 04-23-2025 Bamboo flowsheet Armando Harrison [employer] Work Phone: [facility] Start: 04-23-2025 End: 04-23-2025 ambulatory ARMANDO HARRISON Not Available Start: 04-23-2025 End: 04-23-2025 Patient encounter status Armando Harrison [employer]OM[employer] Work Phone: [facility] Start: 04-23-2025 End: 04-23-2025 Periodic preventive med est patient 18-39 yrs Armando Harrison [employer]ENER Work Phone: [facility] Comment on above: Encounter for wellne ss examination (Primary Dx); Vaginal bleeding; Dermatitis Start: 03-22-2025 End: 03-22-2025 ambulatory Yadira Soto MD Work Phone: [facility] Work Phone: Start: 03-22-2025 End: 03-22-2025 Patient encounter procedure Judy Ferguson INTERIOR DESIGN PROFESSOR -[facility] Work Phone: Start: 01-24-2025 End: 01-24-2025 ambulatory DORA BARTLETT Not Available Start: 01-22-2025 End: 01-22-2025 Telephone encounter Armando Harrison [employer]OMO[employer]ENER Work Phone: [facility] Start: 01-14-2025 End: 01-14-2025 Office outpatient visit 25 minutes Armando Diopfreemannaresh [employer]ENER Work Phone: [facility] Comment on above: Slow transit constip ation (Primary Dx); Amenorrhea; Positive test ([facility]) Start: 01-14-2025 End: 01-14-2025 ambulatory ARMANDO DIOPFreemanNARESH Not Available Start: 01-14-2025 End: 01-14-2025 Bamboo flowsheet Armando Diopfreemannaresh [employer]BI[employer] BU[employer]ER [employer]ENER Work Phone: [facility] Start: 01-14-2025 End: 01-14-2025 Bamboo flowsheet Armando Harrison [employer]ENER Work Phone: [facility] Start: 12-10-2024 End: 12-10-2024 ambulatory PRAVEEN CANADA Not Available Start: 12-05-2024 End: 12-05-2024 ambulatory PRAVEEN A DREAD Not Available Start: 09-25-2024 End: 09-25-2024 ambulatory [facility] Work Phone: Start: 09-25-2024 End: 09-25-2024 Patient encounter procedure [facility] Work Phone: Start: 09-18-2024 End: 09-18-2024 Telephone encounter Armando Harrison [employer]OMOBI[employer] BU[employer]ER [employer]ENER Work Phone: [facility] Start: 07-29-2024 End: 07-29-2024 ambulatory [facility] Work Phone: Start: 07-29-2024 End: 07-29-2024 Patient encounter procedure [facility] Work Phone: Start: 07-15-2024 End: 07-15-2024 Telephone encounter Li Ramos MA [facility] Start: 07-12-2024 End: 07-12-2024 Bamboo flowsheet Armando Harrison [employer]ENER Work Phone: [facility] Start: 07-12-2024 End: 07-12-2024 Bamboo flowsheet Armando Harrison [employer]OMOBI[employer] BU[employer]ER [employer]ENER Work Phone: [facility] Start: 07-12-2024 End: 07-12-2024 Office outpatient visit 25 minutes Armando Harrison [employer]OMOBI[employer] BU[employer]ENER Work Phone: [facility] Comment on above: Bloody stools (Prima ry Dx); Missed menses Start: 07-12-2024 End: 07-12-2024 ambulatory ARMANDO HARRISON Not Available Start: 03-22-2024 End: 03-22-2024 Bamboo flowsheet Armando Harrison [employer]OMOBI[employer] BU[employer]ER [employer]ENER Work Phone: [facility] Start: 03-22-2024 End: 03-22-2024 Bamboo flowsheet Armando Harrison AUTOMOBILE BUMPER STRAIGHTENER Work Phone: [facility] Start: 03-22-2024 End: 03-22-2024 Office outpatient visit 15 minutes Armando Harrison [employer]OMOBI[employer] BU[employer]ER STRAIGHTENER Work Phone: [facility] Comment on above: Mass of right breast , unspecified quadrant (Primary Dx); Unspecified lump in the right breast, upper outer quadrant Start: 02-02-2024 End: 02-02-2024 Emergency department patient visit [facility] Start: 08-30-2023 Bamboo flowsheet Karen Townsend ms [employer]OMOBILE BUMPER STRAIGHTENER Work Phone: [facility] Start: 08-30-2023 Bamboo flowsheet Karen Townsend ms [employer]OMOBI[employer] BU[employer]ER [employer]ENER Work Phone: [facility] Start: 08-30-2023 End: 08-30-2023 Office outpatient visit 15 minutes Karen Colbert [employer]OMOBI[employer] BU[employer]ER [employer]ENER Work Phone: [facility] Comment on above: Viral URI with cough (Primary Dx); Nasal congestion Start: 08-28-2023 End: 08-28-2023 ambulatory Judy Jessika Other [facility] Other Start: 08-28-2023 Office outpatient vi sit 15 minutes Judy Jessika [facility] Start: 07-28-2022 End: 07-28-2022 ambulatory Mariejesse Varela Other [facility] Other Start: 07-28-2022 Telephone encounter Marie kate [facility] Start: 07-26-2022 End: 07-26-2022 ambulatory Mariejesse Varela Other [facility] Other Start: 07-26-2022 Office outpatient vi sit 25 minutes Marie Varela [facility] Start: 03-27-2022 End: 03-27-2022 ambulatory Marie Varela Other [facility] Other Start: 03-27-2022 Office outpatient vi sit 15 minutes Marie Nichole [facility] Start: 03-22-2021 End: 03-22-2021 ambulatory REINA KRISHNAMURTHY Facility:[facility] Start: 12-29-2020 End: 12-30-2020 ambulatory KEN DUNN Facility:[facility] Start: 12-08-2020 End: 12-09-2020 ambulatory KEN DUNN Facility:[facility] Procedures Date Procedure Procedure Detail Performing Clinician Start: 04-24-2025 Urine test visual color cmprsn kims Aliyah Pompa MD Work Phone: Start: 01-14-2025 Urine test visual color sridharn valeria Harrison [employer]OMOBILE BU[employer]ER STRA[employer]ENER Work Phone: Start: 09-25-2024 Quick Strep (POC) Start: 07-12-2024 Urine test visual color sridharn valeria Harrison [employer]OMOBILE BUMPER STRAIGHTENER Work Phone: Start: 08-30-2023 STATUS COVID-19/FLU Aba Colbert [employer]OMOBI[employer] BU[employer]ER [employer]ENER Work Phone: Plan of Treatment Date Care Activity Detail Author Start: 01-13-2026 Influenza vaccination Influenza Vacc ine (#1) [facility] Comment on above: Postponed from 03/17 (Patient Refused) Start: 05-05-2025 End: 05-05-2025 Professional / ancillary services management 05/05/2025 8:30 AM EDT Ancillary Procedure [facility] [address] [place] [address] [facility] Start: 04-24-2025 End: 04-24-2025 Patient encounter procedure [facility] Comment on above: Abnormal uterine ble eding (AUB) Start: 04-23-2025 End: 04-23-2026 CBC W Auto Differential panel - Blood CBC and differential Lab Routine Vaginal bleeding Expected: 04/23/2025 (Approximate), Expires: 04/23/2026 [facility] Work Phone: Comment on above: Expected: 04/23/2025 (Approximate), Expires: 04/23/2026 Start: 04-23-2025 End: 04-23-2026 Ferritin [Mass/volume] in Serum or Plasma Ferritin Lab Routine Vaginal bleeding Expected: 04/23/2025 (Approximate), Expires: 04/23/2026 [facility] Comment on above: Expected: 04/23/2025 (Approximate), Expires: 04/23/2026 Start: 04-23-2025 End: 04-23-2026 HCG, quantitative, HCG, quantitative, Lab Routine Vaginal bleeding Expected: 04/23/2025 (Approximate), Expires: 04/23/2026 [facility] Comment on above: Expected: 04/23/2025 (Approximate), Expires: 04/23/2026 Start: 04-23-2025 End: 04-23-2026 US Pelvis transvaginal US pelvis transvaginal Imaging High Priority Vaginal bleeding Expected: 04/23/2025, Expires: 04/23/2026 [facility] Comment on above: Expected: 04/23/2025 , Expires: 04/23/2026 Start: 03-17-2025 Influenza vaccination Influenza Vacc ine (#1) [facility] Start: 01-14-2025 End: 01-14-2025 Patient encounter procedure 01/14/2025 4:30 PM EDT Office Visit [facility] [address] [place] [phone] Armando Harrison NP [address] [place] [address] Arrived [facility] Comment on above: Arrived Start: 01-14-2025 End: 01-14-2026 HCG, quantitative, HCG, quantitative, Lab Routine Amenorrhea Expected: 01/14/2025 (Approximate), Expires: 01/14/2026 [facility] Work Phone: Comment on above: Expected: 01/14/2025 (Approximate), Expires: 01/14/2026 Start: 07-12-2024 End: 07-12-2025 HCG, quantitative, HCG, quantitative, Lab Routine Missed menses Expected: 07/12/2024 (Approximate), Expires: 07/12/2025 [facility] Comment on above: Expected: 07/12/2024 (Approximate), Expires: 07/12/2025 Start: 07-12-2024 End: 07-12-2025 Measurement of occult blood in single stool specimen Occult blood x 1, stool Lab Routine Bloody stools Expected: 07/12/2024 (Approximate), Expires: 07/12/2025 [facility] Work Phone: Comment on above: Expected: 07/12/2024 (Approximate), Expires: 07/12/2025 Start: 07-12-2024 End: 07-12-2024 Patient encounter procedure 07/12/2024 1:30 PM EST [facility] [address] [place] [phone] Armando Harrison NP [address] [place] [address] [facility] on above: [facility] Start: 03-22-2024 End: 05-22-2025 DBT Breast - right diagnostic Right diagnostic mammogram with tomosynthesis Imaging Routine Mass of right breast, unspecified quadrant Unspecified lump in the right breast, upper outer quadrant Expected: 03/22/2024, Expires: 05/22/2025 [facility] Work Phone: Comment on above: Expected: 03/22/2024 , Expires: 05/22/2025 Start: 03-22-2024 End: 05-22-2025 US Breast - right limited Right breast US limited Imaging Routine Mass of right breast, unspecified quadrant Unspecified lump in the right breast, upper outer quadrant Expected: 03/22/2024, Expires: 05/22/2025 [facility] Comment on above: Expected: 03/22/2024 , Expires: 05/22/2025 Start: 03-17-2024 Influenza vaccination Influenza Vacc ine (#1) [facility] Start: 08-30-2023 End: 08-30-2023 Patient encounter procedure 08/30/2023 11:30 AM EST Office Visit [facility] [address] [place] [phone] Karen Colbert NP [address] [place] [address] Arrived [facility] Comment on above: Arrived Start: 03-17-2023 Influenza vaccination Influenza Vacc ine (#1) [facility] Immunizations Immunization Date Immunization Notes Care Provider Fa cility 11-25-2021 human papilloma viru s vaccine, quadrivalent Karen Colbert [employer]OMOBI[employer] BU[employer]ER STRAIGHTENER Work Phone: [facility] 11-25-2021 meningococcal polysaccharide (groups A, C, Y and W-135) diphtheria toxoid conjugate vaccine (MCV4P) Karen Colbert AUTOMOBILE BUMPER STRAIGHTENER Work Phone: [facility] 07-22-2021 influenza, injectabl e, quadrivalent, preservative free Karen Colbert AUTOMOBILE BUMPER STRAIGHTENER Work Phone: [facility] 07-22-2021 influenza virus vacc ine, unspecified formulation Karen Colbert AUTOMOBILE BUMPER STRAIGHTENER Work Phone: [facility] 04-24-2019 influenza, injectabl e, quadrivalent, contains preservative Karen Colbert AUTOMOBILE BUMPER STRAIGHTENER Work Phone: [facility] 03-01-2018 meningococcal polysaccharide (groups A, C, Y and W-135) diphtheria toxoid conjugate vaccine (MCV4P) Karen Colbert AUTOMOBILE BUMPER STRAIGHTENER Work Phone: [facility] 03-01-2018 tetanus toxoid, redu bailey diphtheria toxoid, and acellular pertussis vaccine, adsorbed Karen Colbert AUTOMOBILE BUMPER STRAIGHTENER Work Phone: [facility] 02-24-2009 diphtheria, tetanus toxoids and acellular pertussis vaccine, unspecified formulation Karen Colbert AUTOMOBILE BUMPER STRAIGHTENER Work Phone: [facility] 02-24-2009 poliovirus vaccine, inactivated Karen Colbert AUTOMOBILE BUMPER STRAIGHTENER Work Phone: [facility] 01-04-2007 measles, mumps and r ubella virus vaccine Karen Colbert AUTOMOBILE BUMPER STRAIGHTENER Work Phone: [facility] 01-04-2007 varicella virus vaccine Kemal Colbert AUTOMOBILE BUMPER STRAIGHTENER Work Phone: [facility] 2005 DTaP-hepatitis B and poliovirus vaccine Karen Colbert AUTOMOBILE BUMPER STRAIGHTENER Work Phone: [facility] 2005 haemophilus influenz ae type b vaccine, PRP-T conjugate Karen Colbert AUTOMOBILE BUMPER STRAIGHTENER Work Phone: [facility] 2005 pneumococcal conjuga te vaccine, 7 valent Karen Colbert AUTOMOBILE BUMPER STRAIGHTENER Work Phone: [facility] 2005 DTaP-hepatitis B and poliovirus vaccine Karen Colbert AUTOMOBILE BUMPER STRAIGHTENER Work Phone: [facility] 2005 haemophilus influenz ae type b vaccine, PRP-T conjugate Karen Colbert AUTOMOBILE BUMPER STRAIGHTENER Work Phone: [facility] 2005 pneumococcal conjuga te vaccine, 7 valent Karen Colbert AUTOMOBILE BUMPER STRAIGHTENER Work Phone: [facility] 2005 DTaP-hepatitis B and poliovirus vaccine Karen Colbert AUTOMOBILE BUMPER STRAIGHTENER Work Phone: [facility] 2005 haemophilus influenz ae type b vaccine, PRP-T conjugate Karen Colbert AUTOMOBILE BUMPER STRAIGHTENER Work Phone: [facility] 2005 pneumococcal conjuga te vaccine, 7 valent Karen Colbert AUTOMOBILE BUMPER STRAIGHTENER Work Phone: [facility] 2005 hepatitis B vaccine, pediatric or pediatric/adolescent dosage Karen Colbert AUTOMOBILE BUMPER STRAIGHTENER Work Phone: [facility] Payers Date Payer Category Payer Private Health Insurance [employer] [id number] 2024 Unknown [id number] 2015 Managed Care HMO (unspecified) [id number] 2005 Unknown [id number] 2005 Unknown [id number] 1259 2005 Unknown [id number]. 1259 2005 Unknown [id number]. 1259 2005 Unknown [id number]. 1259 2005 Unknown [id number]. 1259 2005 Unknown [id number]. 1259 2005 Unknown [id number]. 1259 1969 Unknown [id number]. 593 1969 Unknown [id number]. 593 1969 Unknown [id number] 593 1959 Private Health Insurance [id number] Social History Date Type Detail Facility Unknown if ever smoked [facility] Other Start: 04-18-2023 End: 04-23-2025 Sex Assigned At [facility] Start: 01-22-2023 End: 11-28-2023 Tobacco smoking status NHIS Never smoked tobacco [facility] Start: 01-22-2023 Tobacco use and exposure Smokeless tobacco non-user [facility] Start: 04-18-2023 End: 04-24-2025 Alcohol intake Lifetime non-drinker (finding) [facility] Start: 04-18-2023 End: 04-23-2025 History of Social function [facility] Start: 2005 Sex Assigned At Not on file N [facility] Start: 03-22-2024 Alcohol Comment caffeine intak e: 2-3 cups of coffee daily [facility] Start: 07-12-2024 Alcohol Comment caffeine intake: [facility] Start: 07-29-2024 End: 09-25-2024 Sex Female (finding) [facility] Start: 2005 Sex Assigned At Female F [facility] Start: 01-14-2025 Alcohol Comment caffeine intake: 0 N [facility] Functional Status Date Assessment Result Facility 04-23-2025 Patient Health Quest ionnaire 2 item (PHQ-2) [Reported] [facility] Clinical Notes 03-27-2022 to 04-24-2025 Aliyah Pompa MD - 04/24/2025 10:15 AM Brian Harrison NP - 04/23/2025 8:00 AM EDTTelephone Encounter - Armando Harrison NP - 01/22/2025 7:17 PM Brian Harrison NP - 01/14/2025 4:30 PM EDT Note Date & Type Note Facility 04-24-2025 History of Presen t illness Narrative Images from the original note were not included. Aliyah Pompa MD Obstetrics and Gynecology Patient: Vilma [...] 112 lb LMP (LMP Unknown) BMI 18.93 kg/m OB Status Having periods Smoking Status Never BSA 1.52 m OB History Para Term AB Living 1 0 0 0 1 0 SAB IAB Ectopic Multiple Live Births 0 0 0 0 0 # Outcome Date GA Lbr Rory/2nd Weight Sex Type Anes PTL Lv 1 AB Obstetric Comments No control; every month, normal blood loss, LMP: Unsure Medication and Allergies Medication Documentation Review Audit Reviewed by Judy Sims MA (Prosthetics Lab Technician) on 04/24/25 at 1013 Medication Order Taking? [...] urine manually resulted documented in this encounter [facility] 04-23-2025 History of Presen t illness Narrative Images from the original note were not included. Subjective ?Quick Links Last Note in Specialty Snapshot Edit RFV/CC Edit Screenings Current Meds Patient ID: Vimla Correa is a 19 y.o. female who [...] Has been there for about 2 months. Has been using antibiotic cream and Vaseline daily. Has improved since it iniitally started but has not fully resolved. It is itchy at times but she tries to refrain from scratching. Occupation: Works at [employer]. She is saving for [employer] and planning on pursuing cosmetology. GYNECOLOGICAL HISTORY: [...] Wt 115 lb SpO2 98% BMI 19.43 kg/m Physical Exam Vitals reviewed. Constitutional: Appearance: Normal [...] the morning and before bedtime. Do all this for 7 days. Apply thin layer. -Initiate topical steroids. Moisturize regularly. Assessment & Plan 1. Wellness visit: - She was advised to schedule appointments with an shoe stock associate and a dentist. The importance of receiving the influenza vaccine was emphasized, but she declined. -Wellness performed at [facility] today. Height, weight, BMI, problem list, and immunizations records reviewed. Dental care discussed with patient. Encouraged annual vision screenings and semi-annual dental care. Encouraged healthy eating habits, limit or eliminate junk food and sources of excess calories. Encouraged regular periods of exercise, 150 minutes of exercise weekly or amount appropriate to current level of function. Discussed family/friend/social support and importance of maintaining emotional connections. Follow up annually and as needed. 2. Abnormal uterine bleeding: - She has been experiencing persistent bleeding since taking a pill in January or February. The bleeding has been characterized by dark brown blood, varying from heavy to light flow. She reported occasional cramping that lasts only a few minutes. - There is a concern about potential retained products of conception, which may be causing the continued bleeding. Blood work will be ordered today, as well as an US - A referral to an VIDEO RECORDER MECHANIC will be made for further evaluation and management. - She is open to OCP however will have her see OBGYN first before starting any medication. She is agreeable to this plan. documented in this encounter [facility] 01-22-2025 Telephone encount er Note Please make sure she gets scheduled with Patricia. [facility] 01-22-2025 Miscellaneous Notes Formattin g of this note might be different from the original. Please make sure she gets scheduled with Patricia. documented in this encounter [facility] 01-14-2025 History of Presen t illness Narrative Images from the original note were not included. Vilma Correa is a 19 y.o. female presents with chief complaint of GI Problem HPI: HPI History of Present Illness The patient presents for evaluation of abdominal pain and amenorrhea. She has been experiencing severe abdominal discomfort, which she describes as sharp pains. Despite taking a laxative last night that resulted in bowel movement, the pain persists. Over the past month, she has noticed difficulty in passing stool, with some days of complete absence of bowel movements. She maintains a high-fiber diet and ensures adequate hydration. Her stools are hard and pellet-like, except when she takes a laxative, which then results in diarrhea. She reports no burning sensation in her throat. She also expresses concern about her menstrual health, as she has not had a period for several months. She does not believe she is , citing lack of sexual activity since her last test. SUBJECTIVE: MEDICATIONS: ALLERGIES No current outpatient medications No Known Allergies PAST MEDICAL HISTORY: SOCIAL HISTORY SURGICAL HISTORY: Past Medical History: Diagnosis Date ADHD (attention deficit hyperactivity disorder) Appendicitis Gastroesophageal reflux disease 01/23/2023 Major depressive disorder, single episode, moderate (HCC) 12/04/2019 Other insomnia 08/08/2019 Raynaud's disease without gangrene 01/23/2023 Scarlet fever Social History Tobacco Use Smoking status: Never Smokeless tobacco: Never Vaping Use Vaping status: Never Used Substance Use Topics Alcohol use: Never Comment: caffeine intake: 0 Drug use: Never Past Surgical History: Procedure Laterality Date APPENDECTOMY 07/2019 REVIEW OF SYMPTOMS: Review of Systems OBJECTIVE: Vitals: 01/14/25 1624 BP: 118/76 Pulse: 107 Temp: 97.5 F SpO2: 97% Physical Exam Vitals reviewed. Constitutional: Appearance: Normal appearance. HENT: Head: Normocephalic and atraumatic. Mouth/Throat: Mouth: Mucous membranes are moist. Eyes: Pupils: Pupils are equal, round, and reactive to light. Cardiovascular: Rate and Rhythm: Normal rate and regular rhythm. Pulses: Normal pulses. Heart sounds: Normal heart sounds. Pulmonary: Effort: Pulmonary effort is normal. Breath sounds: Normal breath sounds. Abdominal: General: Bowel sounds are normal. Palpations: Abdomen is soft. Tenderness: There is no abdominal tenderness. Musculoskeletal: Cervical back: Normal range of motion and neck supple. Skin: General: Skin is warm and dry. Capillary Refill: Capillary refill takes less than 2 seconds. Findings: No rash. Neurological: General: No focal deficit present. Mental Status: She is alert and oriented to person, place, and time. ASSESSMENT AND PLAN: Assessment/Plan Diagnoses and all orders for this visit: Slow transit constipation - polyethylene glycol, PEG, 3350 (MiraLax) 17 GM/SCOOP powder; Take 17 g by mouth Daily Mix in 4-8 oz of liquid -start miralax to help better regulate her bowels. Drink plenty of fluids. Increase fiber intake. Keep active. Amenorrhea - POCT , urine - HCG, quantitative, ; Future Positive test ([facility]) - Vit-Fe Fumarate-FA (/Iron) 28-0.8 MG tablet; Take 1 tablet by mouth Daily -urine positive today in office. Will check HCG to confirm. Discussed with patient. Start vitamin daily and schedule with OBGYN for further management. -spoke with Patricia Bhat MA who who will call her to get her scheduled for her initial visit. documented in this encounter [facility] 09-18-2024 Telephone encount er Note Open lab orders which need to be completed. Please call patient and remind them. Can come in anytime Monday-02-17 to have them completed. Let me know if they refuse. [facility] 09-18-2024 Miscellaneous Notes Formattin g of this note might be different from the original. Open lab orders which need to be completed. Please call patient and remind them. Can come in anytime Monday-02-17 to have them completed. Let me know if they refuse. documented in this encounter [facility] 07-29-2024 Evaluation note Diagnosis Onset Date Resolution Influenza A acute July 29, 2024 1:08pm Nausea acute July 29, 2024 1:08pm Contact with or suspected exposure to severe acute respiratory syndrome noneactive July 1:08pm Viral URI with cough acute Maged h 2024 5:20pm [facility] Work Phone: [phone]) 403-305012-30-2024 Telephone encounter Note* Telephone Encounter - Americo Gurrola - 07/15/2024 9:28 AM EST Results given [facility] [id number] Miscellaneous Notes* Telephone Encounter - Americo Gurrola - 07/15/2024 9:28 AM EST Results given * Telephone Encounter - Li Ramos MA - 07/15/2024 8:58 AM EST Lmom asking for a cb, please give pt result * Telephone Encounter - Li Ramos MA - 07/15/2024 8:58 AM EST ----- Message from Armando Harrison sent at 07/13/2024 7:46 AM EST ----- Negative documented in [facility] encounterMet[facility] [id number] Telephone encounter Note* Telephone Encounter - Li Ramos MA - 07/15/2024 8:58 AM EST Lmom asking for a cb, please give pt result [facility] [id number] Telephone encounter Note* Telephone Encounter - Li Ramos MA - 07/15/2024 8:58 AM EST ----- Message from Armando Harrison sent at 07/13/2024 7:46 AM EST ----- Negative [facility] [id number] History of Present illness Narrative* Armando Harrison NP - 07/12/2024 1:30 PM EST Images from the original note were not included. Vilma Correa is a 19 y.o. female presents with chief complaint of Black or Bloody Stool and Abdominal Pain (Epigastric, periumbilical, and hypogastric regions, RLQ, LLQ.) HPI: HPI History of Present Illness The patient presents for evaluation of bloody stools. She reports experiencing intermittent episodes of diarrhea, which she describes as painful. She hasobserved blood in her stool a few days prior, although it is not currently present. Her bowel movements are frequent, occurring twice daily, and are not characterized by hard stools or straining. These symptoms have been persisting for approximately one week. She also reports mild nausea but no vomi ting. She initially suspected lactose intolerance as the cause of her symptoms. After eliminating dairy from her diet for a week, she experienced no stomach issues. However, upon reintroducing dairy,her symptoms worsened. She has not experienced any fevers and has not taken any antibiotics recently. She is not currently menstruating. She has had similar episodes in the past, but they were less severe. She has missed her menstrual cycle and has taken a test, which yielded a positive result.However, subsequent tests have returned negative results. FAMILY HISTORY She does not report a family history of ulcerative colitis that she is aware of. SUBJECTIVE: MEDICATIONS: No current outpatient medications REVIEW OF SYMPTOMS: Review of Systems Gastrointestinal: Positive for blood in stool. Genitourinary: Positive for menstrual problem. OBJECTIVE: Visit Vitals BP 108/64 (BP Location: Left arm, Patient Position: Sitting, BP Cuff Size: Adult) Pulse 93 Ht 5' 4.5 Wt 119 lb SpO2 98% BMI 20.11 kg/m Smoking Status Never BSA 1.57 m Physical Exam Vitals reviewed. Constitutional: Appearance: Normal appearance. HENT: Head: Normocephalic and atraumatic. Nose: Nose normal. Mouth/Throat: Mouth: Mucous membranes are moist. Eyes: Pupils: Pupils are equal, round, and reactive to light. Cardiovascular: Rate and Rhythm: Normal rate and regular rhythm. Pulses: Normal pulses. Heart sounds: Normal heart sounds. Pulmonary: Effort: Pulmonary effort is normal. Breath sounds: Normal breath sounds. Abdominal: General: Bowel sounds are normal. Palpations: Abdomen is soft. Tenderness: There is no abdominal tenderness. There is no guarding or rebound. Musculoskeletal: Cervical back: Normal range of motion and neck supple. Skin: General: Skin is warm and dry. Capillary Refill: Capillary refill takes less than 2 seconds. Findings: No rash. Neurological: General: No focal deficit present. Mental Status: She is alert and oriented to person, place, and time. ASSESSMENT AND PLAN: Assessment/Plan Diagnoses and all orders for this visit: Bloody stools - Occult blood x 1, stool; Future -Obtain occult stool. Do recommend she cut out dairy from her diet as her symptoms resolved once she stopped it which would be consistent with a lactose intolerance. Missed menses - POCT , urine - HCG, quantitative, ; Future -Urine negative today in office, will check HCG as she has had positive test at home. Discussed starting OCP if negative , she declines at this time. Encouraged to use condoms to help prevent and decrease risk for STI's. documented in this encounterMet[facility] [id number] History of Present illness Narrative* Armando Harrison NP - 03/22/2024 9:00 AM EDT Vilma Correa is a 18 y.o. female presents with chief complaint of Breast Mass (Right breast, painful. Noticed last mon/. ) HPI: HPI Presents to the office with complaints of palpable breast mass to right breast, noticed it last week, painful to palpation. No nipple drainage. No erythema or warmth. Is currently on menstrual cycle. SUBJECTIVE: MEDICATIONS: No current outpatient medications REVIEW OF SYMPTOMS: Review of Systems OBJECTIVE: Visit Vitals BP 106/70 (BP Location: Left arm, Patient Position: Sitting, BP Cuff Size: Adult) Pulse 87 Ht 5' 4.5 Wt 110 lb 12.8 oz SpO2 96% BMI 18.73 kg/m Smoking Status Never BSA 1.51 m Physical Exam Vitals reviewed. Constitutional: Appearance: Normal appearance. HENT: Head: Normocephalic and atraumatic. Mouth/Throat: Mouth: Mucous membranes are moist. Eyes: Pupils: Pupils are equal, round, and reactive to light. Cardiovascular: Rate and Rhythm: Normal rate and regular rhythm. Pulses: Normal pulses. Heart sounds: Normal heart sounds. Pulmonary: Effort: Pulmonary effort is normal. Breath sounds: Normal breath sounds. Chest: Breasts: Right: Mass and tenderness present. No inverted nipple, nipple discharge or skin change. Left: Normal. Musculoskeletal: Cervical back: Normal range of motion and neck supple. Skin: General: Skin is warm and dry. Capillary Refill: Capillary refill takes less than 2 seconds. Findings: No rash. Neurological: General: No focal deficit present. Mental Status: She is alert and oriented to person, place, and time. ASSESSMENT AND PLAN: Assessment/Plan Diagnoses and all orders for this visit: Mass of right breast, unspecified quadrant - Right diagnostic mammogram with tomosynthesis; Future - Right breast US limited; Future -Obtain imaging for further evaluation Unspecified lump in the right breast, upper outer quadrant - Right diagnostic mammogram with tomosynthesis; Future - Right breast US limited; Future documented in this encounterMet[facility] [id number] History of Present illness Narrative* Karen Colbert NP - 08/30/2023 11:30 AM EST Subjective Patient ID: Vilma Correa is a 18 y.o. female who presents for nose pain with congestion, and bloody nose. Pt states she vomited this morning. Pt went to [place] urgent care Monday and gave pt a z-pack and has not helped. Pt denies fever, aches, and feeling hot and cold. HPI She said main symptom on Monday was her nose. She has had congestion since Monday. She vomited in the middle of the night last night. Woke up feeling a lot worse. Review of Systems All other systems reviewed and are negative. Objective Physical Exam Vitals and nursing note reviewed. Constitutional: Appearance: Normal appearance. She is ill-appearing. HENT: Right Ear: Tympanic membrane normal. Left Ear: Tympanic membrane normal. Nose: Congestion and rhinorrhea present. Rhinorrhea is purulent. Right Turbinates: Swollen. Left Turbinates: Swollen. Mouth/Throat: Lips: [place]. Mouth: Mucous membranes are moist. Cardiovascular: Rate and Rhythm: Normal rate and regular rhythm. Heart sounds: Normal heart sounds. Pulmonary: Effort: Pulmonary effort is normal. Breath sounds: Normal breath sounds. Psychiatric: Behavior: Behavior is cooperative. Assessment/Plan Diagnoses and all orders for this visit: Viral URI with cough Covid/flu negative in office. Discussed that illness appears viral in nature. Discussed likely course of virus and symptoms can last 7-10 days, but improving each day. Advised dad that they can continue antibiotics prescribed by urgent care, but there is nothing bacterial on exam today so it may not help. May use nasal saline spray or sinus rinse as tolerated for congestion - Humidifier in room and/or warm virgen showers to help thick nasal secretions - Honey for cough and sore throat - Encourage good hydration - Tylenol, motrin as needed for pain, fever. Need to stay home from school until fever free for 24 hours without using fever reducing medication. May use OTC cough and cold meds as needed. Please call if symptoms are not improving over the next 5 days. Nasal congestion - STATUS COVID-19/FLU documented in this encounterMet[facility] [id number] Evaluation note* Encounter Date Diagnosis Assessment Notes Treatment Notes Treatment Clinical Notes Aug, Acute sinusitis, unspecified (ICD-10 - J01.90) Rest. Drink plenty of fluids. Take nfsu-asd-wgiwzye Tylenol or Motrin as needed for fever or discomfort. Use the efvo-jpo-elmwxlr Flonase nasal spray 1 spray in each nostril once daily for the next 14 days. Take the azithromycin as prescribed for the next 5 days. Follow-up with your primary care provider if symptoms persist. Patient is a 18-year-old female who presents to urgent care with complaints of nasal congestion, sinus pain, pain behind the ears. Patient denies any fever or chills but does endorse headaches and frontal headaches with the sinus pain and pressure. Upon exam patient has tenderness to the maxillary sinuses as well as the frontal sinuses. Right ear was cleaned out during the visit with warm water. Bilateral ears are clear and within normal limits. Patient is being diagnosed with an acute bacterial sinusitis and prescribed azithromycin to take as directed for the next 5 days. Patient is to rest, drink plenty of fluids, take ukyn-xgt-awgorfk Tylenol or Motrin as needed for fever or discomfort. Patient is to continue using the Flonase that she has gyod-psi-feqpcyu as directed and follow-up with her primary care provider if symptoms persist. Aug, Other specified bacterial agents as the cause of diseases classified elsewhere (ICD-10 - B96.89) [facility] Other 01-10-2023 Evaluation note* Encounter Date Diagnosis Assessment Notes Treatment Notes Treatment Clinical Notes Jul, Sore throat (ICD-10 - J02.9) Jul, Viral URI (ICD-10 - J06.9) Symptoms appear viral today. Bacteria infections take several days to weeks of symptoms to develop. Use saline nasal spray before prescription one and you have better results. Recommend OTC medications such as Mucinex DM, Delsym, Cepocal Lozenges Continue tylenol/ibuprofen for general discomfort. Encourage fluids. Symptoms should improve within the next 10-14 days. If no improvement of symptoms in 14 days call primary care provider to discuss antibiotic therapy [employer] [facility] [employer] Other [phone] Evaluation note* Encounter Date Diagnosis Assessment Notes Treatment Notes Treatment Clinical Notes Mar, Contact with and (suspected) exposure to other viral communicable diseases (ICD-10 - Z20.828) Mar, COVID-19 (ICD-10 - U07.1) Today you tested positive for the COVID virus. This mean you need to follow all CDC quarantine guidelines found at [email or web address]. It is important to rest, increase fluids, and stay at home. Recommend contacting primary care provider and discussing best course of action if you have chronic health conditions. COVID POSITIVE education handout discharge instructions. given. Mar, Right acute otitis media (ICD-10 - H66.91) [facility] Other Evaluation noteNo InformationNortLatrobe Hospital [place] Other Evaluation note* Diagnosis Viral URI with cough- Primary Nasal congestion Other diseases of nasal cavity and sinuses [facility]* Diagnosis Mass of right breast, unspecified quadrant- Primary Unspecified lump in the right breast, upper outer quadrant [facility]* Diagnosis Bloody stools- Primary Missed menses documented in this encounter [facility]* Diagnosis Onset Date Resolution Status Admit Date Influenza A acute July 29, 2024 1:08pm Nausea acute July 29, 2024 1:08pm Contact with or suspected exposure to severe acute respiratory syndrome noneactive July 1:08pm [facility] Work Phone: Evaluation note* Diagnosis Slow transit constipation- Primary Amenorrhea Absence of menstruation Positive test ([facility]) examination or test, positive result documented in this encounter [facility] HealthcareEvaluation noteNo assessment information availablePremier [facility] Work Phone: Evaluation note* Diagnosis Encounter for wellness examination- Primary Vaginal bleeding Other specified noninflammatory disorder of vagina Dermatitis Contact dermatitis and other eczema, due to unspecified cause [facility]* Diagnosis Abnormal uterine bleeding (AUB) documented in this encounter [facility] HealthcareHistory general Narrative - Reported* Type Description Date Surgical History appendicitis Hospitalization History hx pneumoni , croup, ear issues [facility] Other Reason for referral (narrative)No reason for referral information availablePremier Health [facility] Work Phone: Summary Purpose Family History No Family History Records FoundNo Family History Records FoundNo Family History Records Found Advance Directives Advance Directive Response Recorded Date/ Time Advance Directives No November 27 2:24pm Advance Directive Response Recorded Date/ Time Advance Directives No November 27 3:24pm Chief Complaint and Reason for Visit Chief Complaint Admit Date Cough, congestion July 29, 2024 1 :08pm Reason for Visit Admit Date Influenza A July 29, 2024 1 :08pm Nausea July 29, 2024 1 :08pm Contact with or suspected ex posure to severe acute respiratory syndrome July 29, 2024 1:08pm Chief Complaint Admit Date Cough, congestion July 29, 2024 1 :08pm Sore throat, sinus congestion September 5:20pm Reason for Visit Admit Date Influenza A July 29, 2024 1 :08pm Nausea July 29, 2024 1 :08pm Contact with or suspected ex posure to severe acute respiratory syndrome July 29, 2024 1:08pm Viral URI with cough September 25, 2024 5: 20pm Chief Complaint Admit Date Fever, chills, body aches, headache Sept 2024 12:41pm Additional Source Comments INFORMATION SOURCE (unrecogn ized section and content) DATE CREATED AUTHOR 03/26/2021 [facility] DATE CREATED AUTHOR AUTHOR'S ORGANIZ ATION 02/06/2024 [facility] DATE CREATED AUTHOR AUTHOR'S ORGANIZ ATION 04/25/2025 [facility] EPIC REASON FOR VISIT (unrecogniz ed section and content) Reason Comments Breast Mass Right breast, painfu l. Noticed last mon/. Reason Comments Black or Bloody Stool Abdominal Pain Epigastric, periumbi lical, and hypogastric regions, RLQ, LLQ. Reason Comments GI Problem Reason Comments Annual Exam Rash on right inner thigh, cyst on right middle finger, check on that she had few months ago. Care Teams (unrecognized sec tion and content) [employer] Mill [employer] Relationship Specialty Start Date End Date Yadira Soto MD [address] [place] [address] PCP - General Family Medicine 12/01/22 Karen Colbert, AUTOMOBILE [employer]MPER STRAIGHTENER [address] [place] [address] Nurse Practitioner Family Medicine 12/01/22 [employer] Mill Operator Relationship Specialty Start Date End Date Yadira Soto MD [address] [place] [address] PCP - General Family Medicine 12/01/22 Karen Colbert [employer] [address] [place] [address] Nurse Practitioner Family Medicine 12/01/22 Ball Mill Operator Relationship Specialty Start Date End Date Yadira Soto MD [address] [place] [address] PCP - General Family Medicine 12/01/22 Karen Colbert [employer]OM[employer] STRAIGHTENER [address] [place] [address] Nurse Practitioner Family Medicine 12/01/22 Ball Mill Operator Relationship Specialty Start Date End Date Yadira Soto MD [address] [place] [address] PCP - General Family Medicine 12/01/22 Karen Colbert NP [address] [place] [address] Nurse Practitioner Family Medicine 12/01/22 Ball Mill Operator Relationship Specialty Start Date End Date Yadira Soto MD [address] [facility] [place] [address] PCP - General Family Medicine 12/01/22 Karen Colbert, AUTOMOBILE BUMPER STRAIGHTENER [address] [facility], [place] [place] [address] Nurse Practitioner Family Medicine 12/01/22 Team Status: Active Member Role Status Dates Yadira Soto MD Primary Care Provide r Active Team Status: Inactive Member Role Status Dates Yadira Soto MD Primary Care Provider Active Start: July End: July 29, 2024 Judy Rosen APRN Attending Provider Active S tart: July 29, 2024 End: July 29, 2024 Team Status: Inactive Member Role Status Dates Yadira Soto MD Primary Care Provider Active Start: September 25, 2024 End: September 25, 2024 Judy Rosen APRN Attending Provider Active S tart: September 25, 2024 End: September 25, 2024 Ball Mill Operator Relationship Specialty Start Date End Date Yadira Soto MD [address] [facility] ([place], [place]) [place] [address] PCP - General Family Medicine 12/01/22 Karen Colbert [employer]OMOBI[employer] BU[employer]ER STRAIGHT[employer] [address] [facility] ([place], [place] [place] [address] Nurse Practitioner Family Medicine 12/01/22 Ball Mill Operator Relationship Specialty Start Date End Date Yadira Soto MD [address] [facility] ([place], [place] [place] [address] PCP - General Family Medicine 12/01/22 Karen Colbert NP [address] [facility] [place] [place] [address] Nurse Practitioner Family Medicine 12/01/22 Team Status: Inactive Member Role Status Dates Yadira Soto MD Primary Care Provider Active Start: March 222024 End: March 22, 2025 Judy Rosen APRN Attending Provider Active S tart: March 22, 2025 End: March 22, 2025 Ball Mill Operator Relationship Specialty Start Date End Date Yadira Soto MD [address] [facility] [place] [place] [address] PCP - General Family Medicine 12/01/22 Karen Colbert NP [address] [facility] [place] [place], [place] [id number] Nurse Practitioner Family Medicine 12/01/22 Goals (unrecognized section and content) Goals may be documented in a n alternate section FOR RECORDS PERTAINING TO PATIENTS WHO ARE OR HAVE BEEN ENROLLED IN A CHEMICAL DEPENDENCY/SUBSTANCEABUSE PROGRAM, SOME INFORMATION MAY BE OMITTED. This clinical summary was aggregated from multiple sources. Caution should be exercised in using it in the provision of clinical care. This summary normalizes information from multiple sources, and as a consequence, information in this document may materially change the coding, format and clinical context of patient data. In addition, data may be omitted in some cases. CLINICAL DECISIONS SHOULD BE BASED ON THE PRIMARY CLINICAL RECORDS. [employer] [facility] [facility]. provides no warranty or guarantee of the accuracy or completeness of information in this document.
--- OUTSIDE RECORDS SUMMARY | 2025-05-03 09:18 | XMS_ITS | Encounter Summary ---
Author Organization [facility] Address [address] [facility] [place] [address] Care Team Providers Care Printing Supervisor Name Role Phone Yadira Delgado MD Primary Care Provider [phone] Karen Colbert OPTHALMIC TECH Unavailable [phone] Encounter Details Date Type Department Care Team (Late Contact Info) Description 04/23/2025 Bamboo flowsheet [facility] Family Medicine [address] [place] [address] Sita Harrison NP [address] [place], [place] [id number] Social History Tobacco Use Types Packs/Day Years [...] on file documented as of this encounter Plan of Treatment Upcoming Encounters Date Type Department Care Team (Late st Contact Info) Description 05/05/2025 8:30 AM EDT Ancillary Procedure [facility] [address] [place] [phone] documented as of this encounter Visit Diagnoses Not on filedocumented in this encounter Care Teams Printing Supervisor Relationship Specialty Start Date End Date Yadira Delgado MD [address] [place], [place] [id number] PCP - General Family Medicine 12/01/22 Karen Colbert, MILDRED [address] [place] [address] Nurse Practitioner Family Medicine 12/01/22 documented as of this encounter
--- OUTSIDE RECORDS SUMMARY | 2025-05-03 09:18 | XMS_ITS | Encounter Summary ---
Author Organization [facility] Address [address] [place] [address] Care Team Providers Care Solar Installer Pv Name Role Phone Yadira Delgado MD Primary Care Provider [phone] Karen Colbert MODEL AND MOLD MAKER Unavailable [phone] Encounter Details Date Type Department Care Team (Late st Contact Info) Description 04/24/2025 Telephone [facility] [address] [place] [address] Judy Sims MA [address] [place] [address] Social History Tobacco Use Types Packs/Day Years [...] on file documented as of this encounter Miscellaneous Notes * Telephone Encounter - Kamila De Anda LPN - 04/25/2025 8:58 AM EDT Attempted to call pt , went straight to . Left message for pt to return call to office. * Telephone Encounter - Judy Sims MA - 04/24/2025 4:18 PM EDT Returned call to patient before leaving the office for the day, received a message stating 'the wireless customer you are calling is not available. Please try call again later'. Sending to triage as I will not be back in the office until 04/28/25. * Telephone Encounter - Dulce Maria Dunne MA - 04/24/2025 3:45 PM EDT Attempted to contact pt. Vm was not an option * Telephone Encounter - Judy Stone - 04/24/2025 3:38 PM EDT Pt returned call. * Telephone Encounter - Judy Sims MA - 04/24/2025 3:23 PM EDT Called the patient again, received a message stating 'the wireless customer you are calling is not available, please try call again later'. * Telephone Encounter - Judy Sims MA - 04/24/2025 12:14 PM EDT Mother (Sita) and father (Kiran) are on the patient's HIPAA form. * Telephone Encounter - Judy Sims MA - 04/24/2025 10:36 AM EDT test was negative today in office; couldn't find patient to notify her of results. Called and phone rang to vmail, left vmail advising patient to contact our office. documented in this encounter Plan of Treatment Upcoming Encounters Date Type Department Care Team (Late st Contact Info) Description 05/05/2025 8:30 AM EDT Ancillary Procedure [facility] [address] [place] [address] documented as of this encounter Visit Diagnoses Not on filedocumented in this encounter Care Teams Solar Installer Pv Relationship Specialty Start Date End Date Yadira Delgado MD [address] [place] [address] PCP - General Family Medicine 12/01/22 Karen Colbert NP [address] [place], [place] [phone] Nurse Practitioner Family Medicine 12/01/22 documented as of this encounter
--- OUTSIDE RECORDS SUMMARY | 2025-05-03 09:18 | XMS_ITS | Encounter Summary ---
Author Organization [facility] Address [address] [place] [address] Care Team Providers Care Home Office Claim Specialist Name Role Phone Yadira Delgado MD Primary Care Provider [phone] Karen Colbert MILITARY TECHNICIAN Unavailable Encounter Details Date Type Department Care Team (Late st Contact Info) Description 02/05/2025 Results Follow-Up [facility] [address] [place] [address] Yadira Spence MA OB less than 14 weeks early Social History Tobacco Use Types Packs/Day Years Used Date Smoking Tobacco: Never Smokeless Tobacco: Never Alcohol Use Standard Drinks/Week Comments Never 0 (1 standard drink = 0.6 oz pur e alcohol) caffeine intake: 0 Comments Unknown Sex and Gender Information Value Date Recorded Sex Assigned at Not on file Legal Sex Female 7:25 PM EDT Gender Identity Not on file Sexual Orientation Not on file documented as of this encounter Plan of Treatment Upcoming Encounters Date Type Department Care Team (Late st Contact Info) Description 05/05/2025 8:30 AM EDT Ancillary Procedure [facility] [address] [facility] [address] [place] [address] documented as of this encounter Visit Diagnoses Not on filedocumented in this encounter Care Teams Home Office Claim Specialist Relationship Specialty Start Date End Date Yadira Delgado MD [address] [place] [address] PCP - General Family Medicine 12/01/22 Karen Colbert, MILITARY TECHNICIAN [address] [place] [address] Nurse Practitioner Family Medicine 12/01/22 documented as of this encounter
--- OUTSIDE RECORDS SUMMARY | 2025-05-03 09:18 | XMS_ITS | Encounter Summary ---
Author Organization [facility] Address [address] [place] [address] Care Team Providers Care Position Classifier Name Role Phone Yadira Delgado MD Primary Care Provider [phone] Karen Colbert CIRCUIT BOARD ASSEMBLER Unavailable [phone] Encounter Details Date Type Department Care Team (Late st Contact Info) Description 04/23/2025 Telephone [facility] [address] [place] [phone] Yadira Delgado MD [address] [place], [place] [id number] Social History Tobacco Use Types Packs/Day Years [...] on file documented as of this encounter Functional Status * Over the past 2 weeks, how often have you been bothered by any of the following problems? Question Answer Date of Assessment Author Little interest or pleasure in doing things Not at all 04/23/2025 8:06 AM PANT Thu Kunz M A Feeling down, depressed, or hopeless Not at all 04/23/2025 8:06 AM EDT Thu Kunz M A Patient Health Questionnaire -2 Score 0 04/23/2025 8:06 AM EDT Thu Kunz M A documented as of this encounter Miscellaneous Notes * Telephone Encounter - Thu Kunz MA - 04/23/2025 10:18 AM EDT Pt NEEDS to go to appointment tomorrow at 10:15am with Dr Dylan Pompa. Office is [address]. * Telephone Encounter - Thu Kunz MA - 04/23/2025 9:27 AM EDT Left message for Vilma's mother to see if pt had a new number or if she could have her call office back. * Telephone Encounter - Americo Gurrola - 04/23/2025 9:23 AM EDT Vilma called - said she got a call from us- I dont see a message . documented in this encounter Plan of Treatment Upcoming Encounters Date Type Department Care Team (Late st Contact Info) Description 05/05/2025 8:30 AM EDT Ancillary Procedure [facility] [address] [place] [address] documented as of this encounter Visit Diagnoses Not on filedocumented in this encounter Care Teams Position Classifier Relationship Specialty Start Date End Date Yadira Delgado MD [address] [place] [address] PCP - General Family Medicine 12/01/22 Karen Colbert NP [address] [facility] [place] [address] Nurse Practitioner Family Medicine 12/01/22 documented as of this encounter
--- OUTSIDE RECORDS SUMMARY | 2025-05-03 09:18 | XMS_ITS | Encounter Summary ---
Author Organization [facility] Address [address] [place] [address] Care Team Providers Care Weight Trainer Name Role Phone Yadira Delgado MD Primary Care Provider [phone] Karen Colbert SENIOR WEALTH ADVISOR Unavailable [phone] Encounter Details Date Type Department Care Team (Late Contact Info) Description 12/10/2024 Results Follow-Up [facility] Family Medicine [address] [place] [phone] Galina Gore NP [address] [facility] [address] [place] [address] POCT Urinalysis dipstick, POCT , urine, Urine culture (clean catch), SURESWAB(R) ADVANCED VAGINITIS PLUS, TMA Social History Tobacco Use Types Packs/Day Years Used Date Smoking Tobacco: Never Smokeless Tobacco: Never Alcohol Use Standard Drinks/Week Comments Never 0 (1 standard drink = 0.6 oz pur e alcohol) caffeine intake: Comments Unknown Sex and Gender Information Value Date Recorded Sex Assigned at Not on file Legal Sex Female 7:25 PM EDT Gender Identity Not on file Sexual Orientation Not on file documented as of this encounter Plan of Treatment Upcoming Encounters Date Type Department Care Team (Late st Contact Info) Description 05/05/2025 8:30 AM EDT Ancillary Procedure [facility] [address] [facility] [address] [place] [address] documented as of this encounter Visit Diagnoses Not on filedocumented in this encounter Care Teams Weight Trainer Relationship Specialty Start Date End Date Yadira Delgado MD [address] [place], [place] [phone] PCP - General Family Medicine 12/01/22 Karen Colbert NP [address] [place], [place] [phone] Nurse Practitioner Family Medicine 12/01/22 documented as of this encounter
--- OUTSIDE RECORDS SUMMARY | 2025-05-03 09:18 | XMS_ITS | Encounter Summary ---
Author Organization [facility] Address [address] [place] [address] Care Team Providers Care Coupon Redemption Clerk Name Role Phone Yadira Delgado MD Primary Care Provider [phone] Karen Colbert TIMBER INSPECTOR Unavailable [phone] Encounter Details Date Type Department Care Team (Late Contact Info) Description 09/26/2024 Abstract [facility] Family Medicine [address] [facility] [address] Yadira Delgado MD [address] [place], [place] [phone] Social History Tobacco Use Types Packs/Day Years [...] 05/05/2025 8:30 AM EDT Ancillary Procedure [facility] [address] [facility] [address] [place] [address] documented as of this encounter Visit Diagnoses Not on filedocumented in this encounter Care Teams Coupon Redemption Clerk Relationship Specialty Start Date End Date Yadira Delgado MD [address] [place], [place] [phone] PCP - General Family Medicine 12/01/22 Karen Colbert, TIMBER INSPECTOR [address] [place] [address] Nurse Practitioner Family Medicine 12/01/22 documented as of this encounter
--- OUTSIDE RECORDS SUMMARY | 2025-05-03 09:18 | XMS_ITS | Encounter Summary ---
Author Organization [facility] Address [address] [place] [address] Care Team Providers Care Product Design Engineer Name Role Phone Yadira Delgado MD Primary Care Provider [phone] Karen Colbert MOWING MACHINE OPERATOR Unavailable [phone] Encounter Details Date Type Department Care Team (Late Contact Info) Description 04/24/2025 Bamboo flowsheet [facility] [address] [facility] [address] [place] [address] Dylan Pompa MD [address] [facility] [address] [facility] [address] [place] [address] Social History Tobacco Use Types Packs/Day Years [...] 05/05/2025 8:30 AM EDT Ancillary Procedure [facility] [address] [facility] [address] [place] [address] documented as of this encounter Visit Diagnoses Not on filedocumented in this encounter Care Teams Product Design Engineer Relationship Specialty Start Date End Date Yadira Delgado MD [address] [facility], [place] [phone] PCP - General Family Medicine 12/01/22 Karen Colbert NP [address] [place] [address] Nurse Practitioner Family Medicine 12/01/22 documented as of this encounter
--- OUTSIDE RECORDS SUMMARY | 2025-05-03 09:18 | XMS_ITS | Clinical Summary ---
Author Organization [facility] Address [address] [place] [address] Care Team Providers Care Aix Architect Name Role Phone Yadira Delgado MD Primary Care Provider [phone] Karen Colbert PRE PAROLE COUNSELING AIDE Unavailable [phone] Allergies No known active allergies Medications polyethylene glycol, PEG, 3350 (MiraLax) 17 GM/SCOOP powderIndication s:Slow transit constipation Take 17 g by mouth Daily Mix in 4-8 oz of liquid 527 g 5 04/24/20 25 Discontin ued(Ineff ective) Vit-Fe Fumarate-FA (/Iron) 28-0.8 MG tabletIndication s:Positive test ([facility]) Take 1 tablet by mouth Daily 90 tablet 1 5 04/24/20 25 Discontin ued(Ineff ective) triamcinolone (Kenalog) 0.1 % creamIndications :Dermatitis Apply topically in the morning and before bedtime. Do all this for 7 days. Apply thin layer. 45 g 5 04/24/20 25 Discontin ued(Ineff ective) Active Problems Problem Noted Date Diagnosed Date Gastroesophageal reflux disease 01/23/2023 Hypertrophy of vulva 01/23/2023 Limping gait determined by examination 3 Raynaud's disease without gangrene 01/23/2023 Irregular menstrual cycle 12/08/2022 Irritability and anger 11/16/2020 Mixed obsessional thoughts and acts 10/06/2020 Major depressive disorder, single episode, moder ate 12/04/2019 Other insomnia 08/08/2019 Encounters Date Type Department Care Team Description 04/25/2025 Results Follow-Up [facility] [address] [place] [phone] Sita Harrison NP CBC and differential, Ferritin, HCG, quantitative, 04/24/2025 10:15 AM EDT Office Visit [facility] [address] [place] [address] Dylan Pompa MD Abnormal uterine bleeding (AUB) 04/24/2025 Telephone [facility] [address] [place] [address] Judy Sims MA 04/24/2025 Bamboo flowsheet [facility] [address] [place] [address] Dylan Pompa MD 04/24/2025 Travel 04/23/2025 8:00 AM EDT Office Visit [facility] [address] [facility] [place] [address] Sita Harrison NP Encounter for wellness examination (Primary Dx); Vaginal bleeding; Dermatitis 04/23/2025 Telephone [facility] [address] [facility] [address] Thu Kunz MA 04/23/2025 Telephone [facility] [address] [facility] [address] Yadira Delgado MD 04/23/2025 Telephone [facility] [address] [place] [address] Kamila De Anda LPN 04/23/2025 Bamboo flowsheet [facility] [place] [address] [facility] [address] Sita Harrison NP 04/23/2025 Travel 03/23/2025 Abstract [facility] [address] [facility] [address] Yadira Delgado MD 02/19/2025 Telephone [facility] [address] [place] [address] Lucy Moore MA 02/05/2025 [facility] [address] [place] [address] Yadira Spence MA US OB less than 14 weeks early from Last 3 Months Immunizations Immunization Administration Dates Next Due DTaP / Hep B / IPV 2005,2005, 006 DTaP, Unspecified 02/24/2009 HPV, Quadrivalent 11/25/2021 Hep B, Adolescent or Pediatric 2005 Hib (PRP-T) 2005,2005,2005 IPV 02/24/2009 Influenza, injectable, quadrivalent 04/24/2019 Influenza, injectable, quadr ivalent, preservative free 07/22/2021 MMR 01/04/2007 Meningococcal MCV4P 11/25/2021,03/01/2018 Pneumococcal Conjugate PCV 7 2005,10/04/19 06,2005 Tdap 03/01/2018 Varicella 01/04/2007 Family History Medical History Relation Name Comments Heart disease Maternal Grandmother pulmonary issue Other Relation Name Status Comments Father Alive Maternal Grandmother Mother Alive Other Social History Tobacco Use Types Packs/Day Years Used Date Smoking Tobacco: Never Smokeless Tobacco: Never Tobacco Cessation:Counseling Given: Not Answered Alcohol Use Standard Drinks/Week Comments Never 0 (1 standard drink = 0.6 oz pur e alcohol) caffeine intake: 0 PHQ-2 Answer Date Recorded Patient Health Questionnaire-2 Score 0 04/23/2025 Comments No Sex and Gender Information Value Date Recorded Sex Assigned at Not on file Legal Sex Female 7:25 PM EDT Gender Identity Not on file Sexual Orientation Not on file Last Filed Vital Signs Vital Sign Reading Time Taken Comments Blood Pressure 112/68 04/24/2025 10:12 AM EDT Pulse 68 04/23/2025 8:06 AM EDT Temperature 36.4 C (97.5 F) 01/14/2025 4:24 PM EDT Respiratory Rate 18 01/23/2023 3:30 PM EDT Oxygen Saturation 98% 04/23/2025 8:06 AM EDT Inhaled Oxygen Concentration - - Weight 50.8 kg (112 lb) 04/24/2025 10:12 AM EDT Height 163.8 cm (5' 4.5 ) 12/05/2024 9:04 AM EDT Body Mass Index 18.93 12/05/2024 9:04 AM EDT Plan of Treatment Upcoming Encounters Date Type Department Care Team (Late st Contact Info) Description 05/05/2025 8:30 AM EDT Ancillary Procedure [facility] [address] [place] [address] Health Maintenance Due Date Last Done Comments Influenza Vaccine (#1) 2026 07/22/2021, 2018 Postponed from 03/17/2025 (Patient Refused) Procedures Procedure Name Priority Date/Time Associated Diagnosis Comments POCT , URINE Routine 04/24/2025 10:26 AM EDT Abnormal uterine bleeding (AUB) HCG, TOTAL, QN Routine 04/23/2025 8:28 AM EDT Vaginal bleeding FERRITIN Routine 04/23/2025 8:28 AM EDT Vaginal bleeding CBC (INCLUDES DIFF/PLT) Routine 04/23/2025 8:28 AM EDT Vaginal bleeding from Last 3 Months Results * POCT , urine manually resulted (04/24/2025 10:26 AM EDT) Preg Test, Ur Negative Negative Urine 04/24/2025 10:2 6 AM EDT Dylan Pompa MD POINT OF CARE TEST ENTER/EDIT ORDERABLES Final Result * (ABNORMAL) CBC and differential (04/23/2025 8:28 AM EDT) WHITE BLOOD CELL COUNT 4.3 3.8 - [...] Performing Organization Information Site ID: [email or web address] Name: [email or web address] Address: [address] [place] [phone] Director: Maria T Guerrero Sita Harrison NP LAB BLOOD ORDERABLES Final Resu lt [facility] * HCG, quantitative, (04/23/2025 8:28 AM EDT) Pathologist [facility] HCG, TOTAL, QN <5 mIU/mL [facility] Comment: Reference Range Non or premenopausal <5 Postmenopausal <10 Values from different assay methods may vary. The use of this assay to monitor or to diagnose patients with cancer or any condition unrelated to has not been cleared or approved by the FDA or the establishment guide of the assay. Blood Venous blood specimen / Unknown 04/23/2025 8:28 AM EDT 04/23/2025 3:33 PM EDT Narrative Resulting Agency Comment Performing Organization Information Site ID: [email or web address] Name: [email or web address] Address: [address] [place] [address], [address] [place] [phone] Director: Victor M Guardado MD us Sita Harrison NP LAB BLOOD ORDERABLES Final Resu lt Performing Organization Address [facility] Co de Phone Number [facility] * Ferritin (04/23/2025 8:28 AM EDT) FERRITIN 23 16 - 154 ng/mL [facility] Blood Venous blood specimen / Unknown 04/23/2025 8:28 AM EDT 04/23/2025 3:33 PM EDT Narrative Resulting Agency Comment Performing Organization Information Site ID: QPT Name: [email or web address] Address: [address] [place] [address], [address] [place] [address] Director: Victor M Guardado MD us Sita Harrison NP LAB BLOOD ORDERABLES Final Resu lt Performing Organization Address [facility] de Phone Number [facility] from Last 3 Months Insurance [address] [place] [address] [employer] Care Teams Aix Architect Relationship Specialty Start Date End Date Yadira Delgado MD [address] [place] [address] PCP - General Family Medicine 12/01/22 Karen Colbert, MILDRED [address] [place] [address] Nurse Practitioner Family Medicine 12/01/22
--- OUTSIDE RECORDS SUMMARY | 2025-05-03 09:18 | XMS_ITS | Encounter Summary ---
Author Organization [facility] Address [address] [place] [address] Care Team Providers Care Windows 7 Deployment Lead Name Role Phone Yadira Delgado MD Primary Care Provider [phone] Karen Colbert SODDER Unavailable [phone] Encounter Details Date Type Department Care Team (Late st Contact Info) Description 04/23/2025 Telephone [facility] [address] [place] [id number] Thu Kunz MA Social History Tobacco Use Types Packs/Day Years [...] encounter Miscellaneous Notes * Telephone Encounter - Americo Gurrola - 04/23/2025 5:00 PM EDT Message given to parents and then Vilma called after - benson is unable to go to appt due to not being able to get off work . She said she would call there office in the morning . * Telephone Encounter - Thu Kunz MA - 04/23/2025 4:44 PM EDT Attempted to reach out to pt and both parents. Left messages for all of them. Pt needs to go to appointment tomorrow at 10:15am with Dr Dylan Pompa. Office is [address]. documented in this encounter Plan of Treatment Upcoming Encounters Date Type Department Care Team (Late st Contact Info) Description 05/05/2025 8:30 AM EDT Ancillary Procedure [facility] [address] [place] [address] documented as of this encounter Visit Diagnoses Not on filedocumented in this encounter Care Teams Windows 7 Deployment Lead Relationship Specialty Start Date End Date Yadira Delgado MD [address] [facility] [address] [place], [place] [id number] PCP - General Family Medicine 12/01/22 Karen Colbert NP [address] [place], [place] [phone] Nurse Practitioner Family Medicine 12/01/22 documented as of this encounter
--- OUTSIDE RECORDS SUMMARY | 2025-05-03 09:18 | XMS_ITS | Encounter Summary ---
Author Organization [facility] Address [address] [place] [address] Care Team Providers Care Health Safety Instructor Name Role Phone Yadira Delgado MD Primary Care Provider [phone] Karen Colbert NERVE SPECIALIST Unavailable [phone] Encounter Details Date Type Department Care Team (Late st Contact Info) Description 04/25/2025 Results Follow-Up [facility] Family Medicine [address] [place] [address] Sita Harrison NP [address] [place], [place] [id number] CBC and differential, Ferritin, HCG, quantitative, Social History Tobacco Use Types Packs/Day Years [...] encounter Miscellaneous Notes * Telephone Encounter - Germaine Polk - 04/28/2025 3:25 PM EDT Pt called back- message relayed * Telephone Encounter - Yadira Choudhary MA - 04/28/2025 3:22 PM EDT LMOM letting pt know * Telephone Encounter - Yadira Choudhary MA - 04/28/2025 3:22 PM EDT ----- Message from Sita Harrison sent at 04/25/2025 11:48 AM EDT ----- negative ----- Message ----- From: [facility] Results In Sent: 04/24/2025 3:33 AM EDT To: Sita Harrison NP * Telephone Encounter - Thu Kunz MA - 04/25/2025 11:59 AM EDT Left message to have pt call back for results * Telephone Encounter - Thu Kunz MA - 04/25/2025 11:59 AM EDT ----- Message from Sita Harrison sent at 04/25/2025 11:48 AM EDT ----- negative ----- Message ----- From: [facility] Lab Results In Sent: 04/24/2025 3:33 AM EDT To: Sita Harrison NP documented in this encounter Plan of Treatment Upcoming Encounters Date Type Department Care Team (Late st Contact Info) Description 05/05/2025 8:30 AM EDT Ancillary Procedure [facility] [address] [place] [address] documented as of this encounter Visit Diagnoses Not on filedocumented in this encounter Care Teams Health Safety Instructor Relationship Specialty Start Date End Date Yadira Delgado MD [address] [place] [address] PCP - General Family Medicine 12/01/22 Karen Colbert, MILDRED [address] [place] [address] Nurse Practitioner Family Medicine 12/01/22 documented as of this encounter
--- OUTSIDE RECORDS SUMMARY | 2025-05-03 09:18 | XMS_ITS | Encounter Summary ---
Author Organization [facility] Address [address] [place] [address] Care Team Providers Care Production Ski Repairer Name Role Phone Yadira Delgado MD Primary Care Provider [phone] Karen Colbert SALES AND SUPPORT CENTER AGENT Unavailable [phone] Encounter Details Date Type Department Care Team (Latest Contact Info) Description 04/23/2025 Travel Social History Tobacco Use Types Packs/Day Years [...] M A documented as of this encounter Plan of Treatment Upcoming Encounters Date Type Department Care Team (Late st Contact Info) Description 05/05/2025 8:30 AM EDT Ancillary Procedure [facility] [address] [place] [address] documented as of this encounter Visit Diagnoses Not on filedocumented in this encounter Care Teams Production Ski Repairer Relationship Specialty Start Date End Date Yadira Delgado MD [address] [place] [address] PCP - General Family Medicine 12/01/22 Karen Colbert NP [address] [place] [address] Nurse Practitioner Family Medicine 12/01/22 documented as of this encounter
--- OUTSIDE RECORDS SUMMARY | 2025-05-03 09:18 | XMS_ITS | Encounter Summary ---
Author Organization [facility] Address [address] [facility] [place] [address] Care Team Providers Care Consulting Services Project Manager Name Role Phone Yadira Delgado MD Primary Care Provider [phone] Karen Colbert PARALEGAL SUPERVISOR Unavailable [phone] Encounter Details Date Type Department Care Team (Late Contact Info) Description 09/25/2024 Abstract [facility] [address] [place] [phone] Yadira Delgado MD [address] [place], [place] [phone] Social History Tobacco Use Types Packs/Day Years [...] Ancillary Procedure [facility] [address] [facility] [address] [place] [address] documented as of this encounter Visit Diagnoses Not on filedocumented in this encounter Care Teams Consulting Services Project Manager Relationship Specialty Start Date End Date Yadira Delgado MD [address] [place], [place] [phone] PCP - General Family Medicine 12/01/22 Karen Colbert, PARALEGAL SUPERVISOR [address] [place] [address] Nurse Practitioner Family Medicine 12/01/22 documented as of this encounter
--- OUTSIDE RECORDS SUMMARY | 2025-05-03 09:18 | XMS_ITS | Encounter Summary ---
Author Organization [facility] Address [address] [facility] [place] [address] Care Team Providers Care Machine Burrer Name Role Phone Yadira Delgado MD Primary Care Provider [phone] Karen Colbert SENIOR SECURITY ANALYST Unavailable [phone] Encounter Details Date Type Department Care Team (Latest Contact Info) Description 04/24/2025 Travel Social History Tobacco Use Types Packs/Day [...] Encounters Date Type Department Care Team (Late Contact Info) Description 05/05/2025 8:30 AM EDT Ancillary Procedure [facility] [address] [facility] [address] [place] [phone] documented as of this encounter Visit Diagnoses Not on filedocumented in this encounter Care Teams Machine Burrer Relationship Specialty Start Date End Date Yadira Delgado MD [address] [place], [place] [phone] PCP - General Family Medicine 12/01/22 Karen Colbert NP [address] [place], [place] [address] Nurse Practitioner Family Medicine 12/01/22 documented as of this encounter
--- OUTSIDE RECORDS SUMMARY | 2025-05-03 09:18 | XMS_ITS | Encounter Summary ---
Author Organization [facility] Address [address] [place] [address] Care Team Providers Care Screw Machine Adjuster Automatic Name Role Phone Yadira Delgado MD Primary Care Provider [phone] Karen Colbert PARTS INSPECTOR Unavailable [phone] Encounter Details Date Type Department Care Team ([facility] Contact Info) Description 07/29/2024 Abstract [facility] [address] [facility] [place] [address] Yadira Delgado MD [address] [place], [place] [phone] Social History Tobacco Use Types Packs/Day Years [...] Ancillary Procedure [facility] [address] [facility] [address] [place] [address] documented as of this encounter Visit Diagnoses Not on filedocumented in this encounter Care Teams Screw Machine Adjuster Automatic Relationship Specialty Start Date End Date Yadira Delgado MD [address] [place], [place] [phone] PCP - General Family Medicine 12/01/22 Karen Colbert, PARTS INSPECTOR [address] [place] [address] Nurse Practitioner Family Medicine 12/01/22 documented as of this encounter
--- OUTSIDE RECORDS SUMMARY | 2025-05-03 09:18 | XMS_ITS | Encounter Summary ---
Author Organization [facility] Address [address] [facility] [place] [address] Care Team Providers Care Naphtha Washing System Operator Name Role Phone Yadira Delgado MD Primary Care Provider [phone] Karen Colbert HEEL COMPRESSOR Unavailable [phone] Encounter Details Date Type Department Care Team ([facility] Contact Info) Description 03/23/2025 Abstract [facility] Family Medicine [address] [place] [phone] Yadira Delgado MD [address] [place], [place] [phone] Social History Tobacco Use Types Packs/Day Years [...] Ancillary Procedure [facility] [address] [facility] [address] [place] [address] documented as of this encounter Visit Diagnoses Not on filedocumented in this encounter Care Teams Naphtha Washing System Operator Relationship Specialty Start Date End Date Yadira Delgado MD [address] [place], [place] [phone] PCP - General Family Medicine 12/01/22 Karen Colbert, HEEL COMPRESSOR [address] [place] [address] Nurse Practitioner Family Medicine 12/01/22 documented as of this encounter
--- OUTSIDE RECORDS SUMMARY | 2025-05-03 09:18 | XMS_ITS | Encounter Summary ---
Author Organization [facility] Address [address] [place] [address] Care Team Providers Care Veneer Glue Jointer Feedback Name Role Phone Yadira Delgado MD Primary Care Provider [phone] Karen Colbert CLINICAL NURSE EDUCATOR Unavailable [phone] Encounter Details Date Type Department Care Team (Late st Contact Info) Description 04/23/2025 Telephone [facility] [address] [facility] [address] [place] [address] Kamila De Anda LPN [address] [place] [address] Social History Tobacco Use Types Packs/Day Years [...] things Not at all 04/23/2025 8:06 AM Thu Valenzuela M A Feeling down, depressed, or hopeless Not at all 04/23/2025 8:06 AM PANT Thu Kunz M A Patient Health Questionnaire -2 Score 0 04/23/2025 8:06 AM EDT Thu uKnz M A documented as of this encounter Miscellaneous Notes * Telephone Encounter - Kamila De Anda LPN - 04/23/2025 9:07 AM EDT Received call from Thu Motleyt pt experiencing constat bleeding post 2 mo ago. ( End of Jan) [facility] [place], pt states it was given in pill form. Pt is being seen by Sita Harrison today, and would like pt to be seen. Discussed with AG pt is scheduled 04/24/25 with [facility]. documented in this encounter Plan of Treatment Upcoming Encounters Date Type Department Care Team (Late st Contact Info) Description 05/05/2025 8:30 AM EDT Ancillary Procedure [facility] [address] [place] [address] documented as of this encounter Visit Diagnoses Not on filedocumented in this encounter Care Teams Veneer Glue Jointer Feedback Relationship Specialty Start Date End Date Yadira Delgado MD [address] [facility] [place] [address] PCP - General Family Medicine 12/01/22 Karen Colbert NP [address] [facility] [place] [address] Nurse Practitioner Family Medicine 12/01/22 documented as of this encounter
--- OUTSIDE RECORDS SUMMARY | 2025-05-03 09:18 | XMS_ITS | Clinical Summary ---
Author Organization [facility] tem Address [id number] [address] [place] [address] Care Team Providers Care Reception Name Role Phone Yadira Delgado MD Primary Care Provider [phone] Allergies No known active allergies Medications * This document contains information received from the source organization and may not represent a complete record from that organization. norethindrone-e. estradioL-iron (ESTROSTEP FE) 1-20(5)/1-30(7) /1mg-35mcg (9) tablet Take 1 tablet by mouth in the morning. Active Active Problems Problem Noted Date Diagnosed Date Major depression, single episode 04/11/2021 Irritability and anger 11/16/2020 Mixed obsessional thoughts and acts 10/06/2020 Major depressive disorder, single episode, moder ate 12/04/2019 Attention deficit hyperactiv ity disorder (ADHD), combined type 08/08/2019 Other insomnia 08/08/2019 Family History Medical History Relation Name Comments No Known Problems Father ADD / ADHD Mother COPD Mother Depression Mother Relation Name Status Comments Father Alive Mother Alive Social History Tobacco Use Types Packs/Day Years Used Date Smoking Tobacco: Never Smokeless Tobacco: Never Alcohol Use Standard Drinks/Week Comments Never 0 (1 standard drink = 0.6 oz pur e alcohol) AUDIT-C Answer Date Recorded Frequency of Alcohol Consumption Never 08/01/2019 Average Number of Drinks Not on file 020 Frequency of Binge Drinking Not on file 07/17 Childcare Answer Date Recorded Childcare Unknown 12/24/2018 Employment Answer Date Recorded Employment Unknown 12/24/2018 Hunger Screening Answer Date Recorded Within the past 12 months we worried whether our food would run out before we got money to buy more. Never True 11/03/2022 Within the past 12 months th e food we bought just didn't last and we didn't have money to get more. Never True 11/03/2022 Purpose - Life Answer Date Recorded Purpose and direction in life Unknown Comments No Sex and Gender Information Value Date Recorded Sex Assigned at Not on file Legal Sex Female 12:02 PM EDT Gender Identity Not on file Sexual Orientation Not on file Last Filed Vital Signs Vital Sign Reading Time Taken Comments Blood Pressure 106/65 02/02/2024 5:07 PM EDT Pulse 69 02/02/2024 5:07 PM EDT Temperature 37 C (98.6 F) 02/02/2024 5:07 PM EDT Respiratory Rate 20 02/02/2024 5:07 PM EDT Oxygen Saturation 98% 02/02/2024 5:07 PM EDT Inhaled Oxygen Concentration - - Weight 52.2 kg (115 lb) 02/02/2024 5:07 PM EDT Height 165.1 cm (5' 5 ) 02/02/2024 5:07 PM EDT Body Mass Index 19.14 02/02/2024 5:07 PM EDT Body Mass Index Percentile 18.64% 02/02/2024 5:0 7 PM EDT Growth Chart: CDC (Girls, 2- 20 Years) Plan of Treatment Health Maintenance Due Date Last Done Comments Depression Screening 2017 Adult BMI Screening 02/01/2025 02/02/2024 Tobacco Screening 02/01/2025 02/02/2024 COVID-19 Vaccine ( - 2024-2 6 season) 2025 07/22/2021, 12/29/2020, 12/08/2020 Influenza Vaccine 03/17/2025 07/22/2021, 04/24/2019 DTaP,Tdap and Td Vaccines (6 - Td or Tdap) 03/01/2028 03/01/2018, 02/24/2009, 2005, Additional history exists Medical Devices Not on file Insurance [address] [place] [address] [employer] [address] [place] [address] [employer] [address] [place] [address] Advance Directives * Full Code (Latest Code Status on File) Date Activated Date Inactivated Comments 04/11/2021 12:35 PM 04/12/2021 3:50 PM Care Teams Reception Relationship Specialty Start Date End Date Yadira Delgado MD [address] [facility] [place] [address] PCP - General Family Medicine 10/01/17
== END 2025-05-03 09:51 | disposition home or self-care (01) ==
PROVIDERS: Emergency Provider Emergency Medicine; PCP Family Medicine
DX: S61.200A Unspecified open wound of right index finger without damage to nail, initial encounter (principal); W29.8XXA Contact with other powered hand tools and household machinery, initial encounter
CPT/HCPCS: 99282

== ENCOUNTER 2025-07-06 22:56 | Emergency (ER) | payer OTHER, SELFPAY ==
--- OUTSIDE RECORDS SUMMARY | 2025-07-05 16:41 | XMS_ITS | Encounter Summary ---
Author Organization [facility] tem Address [id number] [address] [place] [address] Care Team Providers Care Special Education Classroom Aide Name Role Phone Yadira Delgado MD Primary Care Provider [phone] Reason for Visit * ReasonCommentsHand PainPatient arrives to ER due to swelling and rash on right hand and fingers. Patient states that she injured right index finger 1 month ago and since then intermittently she has episodes of swelling andrash on hand Encounter Details DateTypeDepartmentCare Team (Latest Contact Info)Grugruqsqaa36/20/2025 4:41 PM EST - 07/05/2025 6:56 PM [facility] - Emergency [address] [place] [address] Clemente Gilman MD [address] [place] [address] Arthralgia of right hand (Primary Dx); Dermatitis, unspecified Discharge Disposition: Home Social History Tobacco UseTypesPacks/DayYears UsedDateSmoking Tobacco: NeverSmokeless Tobacco: NeverAlcohol UseStandard Drinks/WeekCommentsNever0 (1 standard drink = 0.6 oz pure alcohol)AUDIT-CAnswerDate RecordedFrequency of Alcohol ConsumptionNever 08/01/2019Average Number of DrinksNot on file08/01/2019Frequency of Binge DrinkingNot on file08/01/2019ChildcareAnswerDate RecordedChildcareUnknown 12/24/2018EmploymentAnswerDate FihdjfxmHdhxfkbungPnmdunx75/10/2019Hunger ScreeningAnswerDate RecordedWithin the past 12 months we worried whether our food would run out before we got money to buy more.Never True11/03/2022Within the past 12 months the food we bought just didn't last and we didn't have money to get more.Never True3Purpose - LifeAnswerDate RecordedPurpose and direction in mtbpHursuia27/22/2021CommentsNoSex and Gender Information ValueDate RecordedSex Assigned at BirthNot on fileLegal GnuExklgs04/04/2015 12:02 PM EDTGender IdentityNot on fileSexual OrientationNot on filedocumented as of this encounter Last Filed Vital Signs Vital SignReadingTime TakenCommentsBlood Venrsnox951/6407/05/2025 4:07 PM EST Wshgt182307/05/2025 6:56 PM GQGVucrhbosgum15.8 ??C (98.2 ??F)07/05/2025 4:07 PM ESTRespiratory Lfwt301009/05/2024 6:56 PM ESTOxygen Butndqzume288%07/05/2025 6:56 PM ESTInhaled Oxygen Concentration--Sklfgs56.9 kg (110 lb)07/05/2025 4:07 PM EST Height--Body Mass Index18.307 5:07 PM EDTdocumented in this encounter Functional Status * Pain AssessmentQuestionAnswerDate of AssessmentAuthorPain LocationHand 07/05/2025 4:07 PM Elke Sanford RNPain CvfeiuekiebRhjly00/20/2025 4:07 PM Elke Sanford RNPain UyghudqkwxwQqla08/20/2025 4:07 PM Elke Sanford RNPain DurationOther (Comment)07/05/2025 4:07 PM Elke Sanford RNPain TypeAcute pain07/05/2025 4:07 PM Elke Sanford RNPain Assessment 0-10109/05/2024 4:07 PM Elke Sanford RNPain Ofmso3979/20/2025 4:07 PM Elke Sanford RN * [place] Coma ScaleQuestionAnswerDate of AssessmentAuthorEye Uskezds202/20/2025 4:10 PM Elke Sanford RNBest Motor Iqoenhoq448/20/2025 4:10 PM Elke Schuster RNBest Verbal Mrppkuaq032/20/2025 4:10 PM Elke Sanford RNGlasgow Coma Scale Enqvb5002/20/2025 4:10 PM Elke Sanford RN * Vital SignsQuestionAnswerDate of UaknjkvlkdSlphirSqumw1884/20/2025 6:56 PM Iza Lindsey RNResp18109/05/2024 6:56 PM Iza Ko JEAfW1342 07/05/2025 6:56 PM Iza Ko RNO2 DeviceNone (Room air)07/05/2025 6:56 PM Iza Ko RNHeart Rate SourcePulse Ox07/05/2025 6:56 PM Iza Ko RNPatient XfcojemtNqfycst29/20/2025 6:56 PM Iza Ko RN * Patient ObservationQuestionAnswerDate of KnnqbshpnmVpyxgyEdwcwx220790/20/2025 4:07 PM Elke Sanford RN * Musculoskeletal DetailsQuestionAnswerDate of AssessmentAuthorR HandFull movement;Swelling;No deformity;No injury/odqfgt6107/05/2025 4:54 PM Iza Ko RN * Abuse Indicator ScreeningQuestionAnswerDate of AssessmentAuthorSafe in HomeYes 07/05/2025 4:54 PM Iza Ko RNDo you feel safe in your relationship(s)?Yes07/05/2025 4:54 PM Iza Ko RNAre you in immediate danger?No07/05/2025 4:54 PM Iza Ko RN * Harm Risk AssessmentQuestionAnswerDate of AssessmentAuthorAre you having thoughts of homicide or causing harm to others?No07/05/2025 4:11 PM Elke Schuster RN * Fall Prevention Screening 18-64 yearsQuestionAnswerDate of AssessmentAuthorIs Patient Alert, Oriented and Able to Follow HqfxswfrNvh18/20/2025 4:53 PM Iza Lindsey RNInterventionsBed in Low Position;Nonslip Jkmxinle13/20/2025 4:53 PM Iza Ko, RNFall Prevention ScreenDoes Not Apply to Patient - Screening Xwbdazbr07/20/2025 4:53 PM Iza Ko RN * Vital SignsQuestionAnswerDate of SilnmsaypmNeekptZG413/6407/05/2025 4:07 PM Elke Sanford RNTemp98. 4:07 PM Elke Sanford RNTemp eovQkwk4707/05/2025 4:07 PM Elke Sanford RNBP LocationLeft arm07/05/2025 4:07 PM Elke Sanford RNBP OzinalCaunsilah22/20/2025 4:07 PM Elke Schuster RN * Oxygen TherapyQuestionAnswerDate of AssessmentAuthorPulse Ox Monitoring Wfhnmopcqo01/20/2025 4:07 PM Elke Sanford RN * Adult Sepsis RiskQuestionAnswerDate of AssessmentAuthorSIRS Criteria0 07/05/2025 6:40 PM ESTChetground, ClindocRisk of Sepsis v.20.8109/05/2024 6:41 PM ESTChetground, Clindoc * AirwayQuestionAnswerDate of AssessmentAuthorAirway (WDL)WDL109/05/2024 4:10 PM Elke Sanford RN * BreathingQuestionAnswerDate of AssessmentAuthorBreathing (WDL)WDL109/05/2024 4:10 PM Elke Sanford RN * CirculationQuestionAnswerDate of AssessmentAuthorCirculation (WDL)WDL 07/05/2025 4:10 PM Elke Sanford RN * DisabilityQuestionAnswerDate of AssessmentAuthorDisability (WDL)WDL109/05/2024 4:10 PM Elke Sanford RN * Family/Lumber Tying Machine Operator NotifiedQuestionAnswerDate of AssessmentAuthor Family/Lumber Tying Machine Operator notified of Emergency Department Admission?Family kpwbmly1507/05/2025 4:53 PM Iza Ko RN * [place] Suicide BehaviorQuestionAnswerDate of AssessmentAuthor6. Have you ever done anything, started to do anything, or prepared to do anything to end your life?No07/05/2025 4:11 PM Elke Sanford RN * Suicidal Ideation (Last Month)QuestionAnswerDate of AssessmentAuthor1. In the last month have you wished you were or wished you could go to sleep and not wake up?No07/05/2025 4:11 PM Elke Sanford RN2. In the last month have you actually had any thoughts of killing yourself?No07/05/2025 4:11 PM Elke Sanford RNAble to assess?Yes07/05/2025 4:11 PM Elke Sanford RN * MusculoskeletalQuestionAnswerDate of AssessmentAuthorMusculoskeletal Additional XukmdugtwjfSie18/20/2025 4:54 PM Iza Ko RN Musculoskeletal (WDL)X109/05/2024 4:54 PM Iza Ko RN * Vitals TimerQuestionAnswerDate of AssessmentAuthorRestart Vitals TimerYes 07/05/2025 4:07 PM Elke Sanford RN * TB ScreeningQuestionAnswerDate of AssessmentAuthorPatient has prolonged cough? No07/05/2025 4:54 PM Iza Ko RNPatient has bloody cough?No07/05/2025 4:54 PM Iza Ko RNPatient has fever?No07/05/2025 4:54 PM Iza Ko RNPatient has night sweats?No07/05/2025 4:54 PM Iza Ko RN Patient has weight loss?No07/05/2025 4:54 PM Iza Ko RNPatient has positive PPD?No07/05/2025 4:54 PM Iza Ko RN * [place] Suicide Risk LevelAnswerDate of AssessmentAuthorNot at Suicide Risk 07/05/2025 4:11 PM Elke Sanford RN * Vital SignsQuestionAnswerDate of SgkhbnwizuJxonieDxads6845/20/2025 6:56 PM Iza Lindsey VULpxn1956/20/2025 6:56 PM Iza Ko, IDAsT2291 07/05/2025 6:56 PM Iza Ko RNHeart Rate SourcePulse Ox07/05/2025 6:56 PM Iza Ko, RNPatient IotreijpCoaupfr31/20/2025 6:56 PM Iza Lindsey RN * Patient ObservationQuestionAnswerDate of EvhqpccercUdievwNycqmi345360/20/2025 4:07 PM Elke Sanford RN * Vital SignsQuestionAnswerDate of ZjcrvprtkiScykduIY404/6407/05/2025 4:07 PM Elke Sanford RNTemp98. 4:07 PM Elke Sanford RNTemp hafTkba8007/05/2025 4:07 PM Elke Sanford RNBP LocationLeft arm07/05/2025 4:07 PM Elke Sanford RNBP EfsrmfFhexqfyaz53/20/2025 4:07 PM Elke Schuster RN documented as of this encounter Mental Status * Pain AssessmentQuestionAnswerEntry DateAuthorPain TxwxmuueOciw91/20/2025 4:07 PM Elke Sanford RNPain NzcfgailbeyPpvem37/20/2025 4:07 PM Elke Sanford RNPain WctkibnixjyZsbr99/20/2025 4:07 PM Elke Sanford RNPain DurationOther (Comment)07/05/2025 4:07 PM Elke Sanford RNPain Assessment0-10109/05/2024 4:07 PM Elke Sanford RNPain Vefzz9623/20/2025 4:07 PM Elke Sanford RN * [place] Coma ScaleQuestionAnswerEntry DateAuthorEye Ndlzjtg885/20/2025 4:10 PM Elke Sanford RNBest Motor Yrmzyznd700/20/2025 4:10 PM Elke Sanford RNBest Verbal Qkohucig483/20/2025 4:10 PM Elke Sanford RN [place] Coma Scale Hbrxv1896/20/2025 4:10 PM Elke Sanford RN * Vital SignsQuestionAnswerEntry AxmtSetlgqRnplq1854/20/2025 6:56 PM Iza Ko RNResp18109/05/2024 6:56 PM Iza Ko WDVqM097558/20/2025 6:56 PM Iza Ko RNO2 DeviceNone (Room air)07/05/2025 6:56 PM Iza Ko RNHeart Rate SourcePulse Ox07/05/2025 6:56 PM Iza Ko RN Patient PysvvosiYkhmyph36/20/2025 6:56 PM Iza Ko RN * Musculoskeletal DetailsQuestionAnswerEntry DateAuthorR HandFull movement;Swelling;No deformity;No injury/lvmbuz0807/05/2025 4:54 PM Iza Ko RN * Vital SignsQuestionAnswerEntry OmpjCmxuqcNS167/6407/05/2025 4:07 PM Elek Schuster RNTemp98. 4:07 PM Elke Sanford RNTemp src Oral07/05/2025 4:07 PM Elke Sanford RNBP LocationLeft arm07/05/2025 4:07 PM Elke Sanford RNBP EuvgipNuzheawjx16/20/2025 4:07 PM Elke Schuster RN * MusculoskeletalQuestionAnswerEntry DateAuthorMusculoskeletal Additional WxzzrkacwnmIac95/20/2025 4:54 PM Iza Ko RN documented in this encounter Discharge Instructions * Discharge Instructions* Clemente Gilman MD - 07/05/2025 6:42 PM EST Apply the ointment to the skin lesions popping up in your hand. Take the steroid as prescribed. Return for any problems or concerns. Follow up with your doctor for re-evaluation. If you develop swelling of any other joints please return immediately * Attachments The following attachments cannot be sent through Care Everywhere. * Hand Pain Discharge Instructions (Yemeni) documented in this encounter Medications at Time of Discharge MedicationSigDispense QuantityRefillsLast FilledStart DateEnd Date methylPREDNISolone (MEDROL, JOHN,) 4 mg tablet follow package directions 21 tablet 07/05/2025 mupirocin (BACTROBAN) 2 % ointment Apply 1 Application topically in the morning and 1 Application before bedtime. Do all this for 7 days. 15 g norethindrone-e.estradioL-iron (ESTROSTEP FE) 1-20(5)/1-30(7) /1mg-35mcg (9) tablet Take 1 tablet by mouth in the morning.documented as of this encounter ED Notes * Clemente Gilman MD - 07/05/2025 5:08 PM EST Images from the original note were not included. [facility] - EMERGENCY Pt Name: Vilma Correa Birthdate: 2005 Chief Complaint: Chief Complaint Patient presents with Hand Pain Patient arrives to ER due to swelling and rash on right hand and fingers. Patient states that she injured right index finger 1 month ago and since then intermittently she has episodes of swelling andrash on hand History of Present Illness: Initial evaluation performed at 5:[address] Memo Gilman. Patient is a 20 y.o. female who presents to the ED for evaluation of hand pain. Pt states that a month ago, she sliced some of her fingertip off of her right index finger. Pt states this is now healed but every time she bumps her hand on anything, she has significant pain and notices bumps that popup on her finger. Pt also notes that all of her fingers of her right hand are swollen. Pt does workat [employer], and uses her hands a lot. Pt denies any other joint pain. Pt denies fever or chills. Pt denies using any cream or lotion on her right hand that she does not use on her left hand. Pt does note she wondered if it was from chemicals at work, but states that it would not make sense for it toonly affect one hand and not the other. There are no other concerns at this time. History provided by: Patient investment sales assistant used: No Past Medical History: History reviewed. No pertinent past medical history. Past Surgical History: Past Surgical History: Procedure Laterality Date LAPAROSCOPIC APPENDECTOMY N/A 08/01/2019 Performed by Jay Arboleda MD at [facility] Family History: Family History Problem Relation Age of Onset Depression Mother ADD / ADHD Mother COPD Mother No Known Problems Father Social History: Social History Socioeconomic History Marital status: Single Tobacco Use Smoking status: Never Smokeless tobacco: Never Substance and Sexual Activity Alcohol use: Never Drug use: Never Sexual activity: Not Currently Social Drivers of Health Food Insecurity: No Food Insecurity (11/03/2022) Hunger Screening Food Insecurity - Worry: Never True Food Insecurity - Inability: Never True Review of Systems: Review of Systems Physical Exam: ED Triage Vitals [07/05/25 1607] Temp Heart Rate Resp BP SpO2 36.8 ??C (98.2 ??F) 64 18 107/64 100 % Temp Source Heart Rate Source Patient Position BP Location FiO2 (%) Oral Pulse Ox Sitting Left arm -- Vitals: 07/05/25 1607 BP: 107/64 Temp: 36.8 ??C (98.2 ??F) TempSrc: Oral Pulse: 64 Resp: 18 SpO2: 100% Weight: 49.9 kg (110 lb) Physical Exam Vitals reviewed. HENT: Head: Normocephalic and atraumatic. Eyes: Conjunctiva/sclera: Conjunctivae normal. Cardiovascular: Rate and Rhythm: Normal rate. Pulmonary: Effort: Pulmonary effort is normal. Breath sounds: Normal breath sounds. Abdominal: General: There is no distension. Palpations: Abdomen is soft. Musculoskeletal: General: Normal range of motion. Right hand: Swelling (joint swelling of all interphalangeal joints) present. Cervical back: Normal range of motion and neck supple. Skin: General: Skin is warm and dry. Findings: Lesion (nonspecific, look like small blisters to the medial aspect of a few of her fingers on her right hand. No evidence of cellulitis) present. Neurological: General: No focal deficit present. Mental Status: She is alert and oriented to person, place, and time. GCS: GCS eye subscore is 4. GCS verbal subscore is 5. GCS motor subscore is 6. Procedure: Procedures Re-evaluation: I, Sera Rose (scribe), documented on behalf and in the presence of Dr. Memo Gilman. Medical Decision Making Patient had some nonspecific papular lesions on her fingers. She also has visible swelling of the interphalangeal joints of the right hand. Her x-ray was nondiagnostic with no acute findings. At thistime I have written her for an antibacterial ointment for the skin lesions and I have written her ashort course of steroids for the joint swelling. I have counseled her if she develops joint swelling in other joints she needs to follow up closely and have further testing. I counseled her to followup with her primary care provider either way. Amount and/or Complexity of Data Reviewed Radiology: ordered. Details: Imaging was independently viewed and is unremarkable. However, pending official radiologist read. Risk Prescription drug management. ED Course: Clinical Impressions as of 07/05/25 1840 Arthralgia of right hand Dermatitis, unspecified . ED Disposition None . Please note that portions of this note were completed with a voice recognition program. Efforts were made to edit the dictations but occasionally words are mis-transcribed. Sera Rose 07/05/25 1711 Sera Rose 07/05/25 1759 Sera Rose 07/05/25 1850 Clemente Gilman MD 07/06/25 2244 documented in this encounter Plan of Treatment Not on file documented as of this encounter Procedures Procedure NamePriorityDate/TimeAssociated DiagnosisCommentsXR HAND RT MIN 3 VWS STAT109/05/2024 5:58 PM EST documented in this encounter Results * X-ray hand right minimum 3 views (07/05/2025 5:58 PM EST)Anatomical Region LateralityModalityUpper Extremities, MSK, HandComputed RadiographySpecimen (Source)Anatomical Location / LateralityCollection Method / VolumeCollection TimeReceived Time07/05/2025 6:46 PM EST Narrative 07/05/2025 7:02 PM EST XR HAND RT MIN 3 VWS HISTORY: Right hand pain, swelling COMPARISON: None TECHNIQUE: 3 views of the right hand obtained. FINDINGS: No acute fracture or dislocation. Joint spaces are maintained. IMPRESSION: ?? No radiographic evidence of acute osseous abnormality. Approved by Resident Heather Washington DO ??on 07/05/2025 6:46 PM Sami Salazar MD have personally reviewed the image(s) and agree with and/or edited the report Finalized by Sami Del Castillo MD on 07/05/2025 7:02 PM Procedure Note Sami Del Castillo MD - 07/05/2025 XR HAND RT MIN 3 VWS HISTORY: Right hand pain, swelling COMPARISON: None TECHNIQUE: 3 views of the right hand obtained. FINDINGS: No acute fracture or dislocation. Joint spaces are maintained. IMPRESSION: No radiographic evidence of acute osseous abnormality. Approved by Resident Heather Washington DO on 07/05/2025 6:46 PM Sami Salazar MD have personally reviewed the image(s) and agree withand/or edited the report Finalized by Sami Del Castillo MD on 07/05/2025 7:02 PM Authorizing ProviderResult TypeResult StatusStevradha Gilman MDIMChris DIAGNOSTIC IMAGING ORDERABLESFinal Result documented in this encounter Visit Diagnoses Diagnosis Arthralgia of right hand- Primary Dermatitis, unspecified documented in this encounter Care Teams Team MemberRelationshipSpecialtyStart DateEnd Date Yadira Delgado MD [address] [place] [address] PCP - GeneralFamily Jhxzbsuv62/20/25documented as of this encounter
[2025-07-06 23:00] VITALS: BP 114/66; PULSE 94; TEMP 36.7; O2SAT 97; BMI 18.3
--- NOTE | 2025-07-06 23:32 | ED_ITS ---
HPI - Extremity Problem General Chief complaint: Extremity Problem, Nontraumatic Stated complaint: Right Hand NUM Time Seen by Provider: 07/06/25 23:18 Source: patient Mode of arrival: walk-in Limitations: no limitations History of Present Illness HPI Narrative: presents complaining of swelling of her fingers right hand and not able to make a fist. She also has very dry skin both hands. Was seen at [facility] yesterday prescribed medrol dose courtney. States she took all the pills in the dosepak today just before coming in denies fever or injury to the hand labs returned and are WNL. Patient and mother informed she may have underlying autoimmnue disease to explain these findings. prescribed prednisone for home and advised to follow up with the family doctor for referral to [facility] Related Data Home Medications ?Medication ?Instructions ?Recorded ?Confirmed No Known Home Medications 07/06/2506/17 Allergies Allergy/AdvReac Type Severity Reaction Status Date / Time No Known Drug Allergies Allergy Verified 07/06/25 23:06 Review of Systems ROS Status of ROS 10 or more systems reviewed and unremark able except as noted in history and below PFSH PFSH Social History Little interest or pleasure in doing things: not at all Feeling down, depressed, or hopeless: not at all Exam Constitutional Vital Signs, click to edit/add: Last Vital Signs Temp 98.1 F 07/06/25 23:00 Pulse 94 H 07/06/25 23:00 Resp 16 07/06/25 23:00 BP 114/66 07/06/25 23:00 Pulse Ox 97 07/06/25 23:00 O2 Del Method Room Air 07/06/25 23:00 Common normals: no apparent distress, average body habitus, oriented x3, no limitations, healthy appearing, alert and well nourished [facility] Common normals: normocephalic and head/scalp atraumatic Eye Common normals: EOMs intact bilaterally and conjunctivae normal Respiratory Common normals: normal respiratory effort, no retractions, no use of accessory muscles and clear to auscultation bilaterally Cardio Common normals: regular rate, regular rhythm, S1 normal heart sound and S2 normal heart sound GI Common normals: Normal to inspection, nondistended, normoactive bowel sounds present, soft to palpation and non-tender Extremity Other: dry skin dorsum both hands mild swelling of her fingers. swelling restricts her form making a fist nontender N/V intact right hand and fingers Neuro Common normals: oriented x3, CN's II-XII intact bilaterally, moves all extremities and no focal motor deficits Psych Appearance: grossly normal Course Vital Signs Vital signs: Vital Signs Temperature 98.1 F 07/06/25 23:00 Pulse Rate 94 H 07/06/25 23:00 Respiratory Rate 16 07/06/25 23:00 Blood Pressure 114/66 07/06/25 23:00 Pulse Oximetry 97 07/06/25 23:00 Oxygen Delivery Method Room Air 07/06/25 23:00 Temperature 98.1 F 07/06/25 23:00 Pulse Rate 94 H 07/06/25 23:00 Respiratory Rate 16 07/06/25 23:00 Blood Pressure 114/66 07/06/25 23:00 Pulse Oximetry 97 07/06/25 23:00 Oxygen Delivery Method Room Air 07/06/25 23:00 MDM - Extremity (Nontraumatic) MDM Narrative Medical decision making narrative: seen yesterday at [facility] for her hands. Prescribed medrol. Took the first day of the medrol packet and now presents here because she did not improve. Has xerosis of her hands and also swelling of the joints of her fingers that restricts her from making full fist. Patient advised she likely has underying autoimmune/ collagen vascular disease to explain her findings. labs with normal CBC and BMP. mild elevation of RBS. given dose of solumedrol and discharged with a prescription of prednisone. Advised to follow up with her PCP for referral to Rheumatology Lab Data Labs: Lab Results 07/06/25 Range/Units 23:30 WBC 7.0 (4.0-11.0) 10^3/uL RBC 4.59 (4.20-5.40) 10^6/uL Hgb 13.6 (12.0-16.0) g/dL Hct 39.5 (36.0-48.0) % MCV 86.1 (81.0-99.0) fL MCH 29.6 (26.7-34.0) pg MCHC 34.4 (29.9-35.2) g/dL RDW 11.9 (11.0-15.0) % Plt Count 213 (150-450) 10^3/uL MPV 9.9 (9.5-13.5) fL Seg Neuts % (Manual) 89.0 H (43.0-75.0) Lymphocytes % (Manual) 7.0 L (20.5-60.0) % Monocytes % (Manual) 4.0 (1.7-12.0) % Eosinophils % (Manual) 0.0 L (0.9-7.0) % Basophils % (Manual) 0.0 L (0.2-2.0) % Neutrophils # (Manual) 6.23 (1.4-6.5) 10^3/uL Lymphocytes # (Manual) 0.49 L (1.20-3.80) 10^3/uL Monocytes # (Manual) 0.28 L (0.30-0.80) 10^3/uL Eosinophils # (Manual) 0.00 (0.00-0.70) 10^3/uL Basophils # (Manual) 0.00 (0.00-0.10) 10^3/uL Sodium 141 (136-145) mmol/L Potassium 3.8 (3.5-5.1) mmol/L Chloride 106 (98-107) mmol/L Carbon Dioxide 25.5 (21.0-32.0) mmol/L Anion Gap 13.3 BUN 13.0 (7.0-18.0) mg/dL Creatinine 0.73 (0.55-1.02) mg/dL Est GFR ( Amer) >60 (>=60 mL/min/1.73m^2) Est GFR (Non-Af Amer) >60 (>=60 mL/min/1.73m^2) BUN/Creatinine Ratio 17.8 Glucose 147 H (74-106) mg/dL Calcium 8.7 (8.5-10.1) mg/dL C-Reactive Protein <0.50 (<=0.50) mg/dL Discharge Plan Discharge Chief Complaint: Extremity Problem, Nontraumatic Clinical Impression: Swelling of digit of right hand Patient Disposition: Home, Self-Care Prescriptions / Home Meds: No Action No Known Home Medications Print Language: Guamanian Instructions: Arthralgia (ED) Additional Instructions: follow up with your doctor this week Referrals: CHIKA SOTO [Primary Care Provider, [facility]] - 1 week Discharge Date/Time: 07/07/25 00:48
[2025-07-06 23:41] LABS: Hematocrit 39.5 % (36.0-48.0); Hemoglobin 13.6 g/dL (12.0-16.0); Mean Corpuscular HGB Conc 34.4 g/dL (29.9-35.2); Mean Corpuscular Hemoglobin 29.6 pg (26.7-34.0); Mean Corpuscular Volume 86.1 fL (81.0-99.0); Platelet Count 213 10^3/uL (150-450); Red Blood Count 4.59 10^6/uL (4.20-5.40); White Blood Count 7.0 10^3/uL (4.0-11.0)
[2025-07-06] MEDS: METHYLPREDNISOLONE SOD SUCC PF 125 MG/2 ML VIAL IVP (23:42)
[2025-07-06 23:51] LABS: Anion Gap 13.3; Blood Urea Nitrogen 13.0 mg/dL (7.0-18.0); Calcium 8.7 mg/dL (8.5-10.1); Carbon Dioxide 25.5 mmol/L (21.0-32.0); Chloride 106 mmol/L (98-107); Estimated GFR (African America >60 (>=60 mL/min/1.73m^2); Estimated GFR (Non-African Ame >60 (>=60 mL/min/1.73m^2); Glucose 147 mg/dL (74-106); Potassium 3.8 mmol/L (3.5-5.1); Sodium 141 mmol/L (136-145)
[2025-07-07 00:04] LABS: Basophils Abs Manual 0.00 10^3/uL (0.00-0.10); Basophils Percent Manual 0.0 % (0.2-2.0); Eosinophils Absolute Manual 0.00 10^3/uL (0.00-0.70); Eosinophils Percent Manual 0.0 % (0.9-7.0); Lymphocytes Absolute Manual 0.49 10^3/uL (1.20-3.80); Lymphocytes Percent Manual 7.0 % (20.5-60.0); Monocytes Absolute Manual 0.28 10^3/uL (0.30-0.80); Monocytes Percent Manual 4.0 % (1.7-12.0); Segmented Neut Absolute Manual 6.23 10^3/uL (1.4-6.5); Segmented Neutrophils % Manual 89.0 (43.0-75.0)
--- OUTSIDE RECORDS SUMMARY | 2025-07-07 00:25 | XMS_ITS | Clinical Summary ---
Author Organization [facility] Address [address] [place] [address] Care Team Providers Care Polymerization Kettle Operator Name Role Phone Yadira Delgado MD Primary Care Provider [phone] Karen Colbert ESCORT SERVICE ATTENDANT Unavailable [phone] Allergies No known active allergies Medications No known medications Active Problems ProblemNoted DateDiagnosed DateGastroesophageal reflux gcgawbv6701/23/2023 Hypertrophy of vulva01/23/2023Limping gait determined by ygajmkftgkt94/10/2023 Raynaud's disease without hepktapw34/10/2023Irregular menstrual cycle12/08/2022 Irritability and anger11/16/2020Mixed obsessional thoughts and acts10/06/2020 Major depressive disorder, single episode, rfiurxrf33/20/2020Other insomnia 08/08/2019 Encounters DateTypeDepartmentCare PfauQfkqqayyprw31/12/2025Telephone [facility] [address] [place] [address] Judy Sims MA 05/26/2025 11:00 AM ESTAncillary Procedure [facility] [address] [place] [address] Abnormal uterine bleeding (AUB)05/26/20254769Ymvacu92/03/2025 2:15 PM ESTOffice Visit [facility] [address] [place] [address] Dylan Pompa MD Abnormal uterine bleeding (AUB) (Primary Dx)05/19/2025amboo flowsheet [facility] [address] [place] [address] Dylan Pompa MD 05/19/20251219Lyrlhk34/20/2025 8:30 AM EDTAncillary Procedure [facility] [address] [place] [address] Abnormal uterine bleeding (AUB)05/05/2025Telephone [facility] [address] [place] [address] Judy Sims MA 05/05/20256002Oqnqdy90/18/2025bstract [address] [place] [address] Yadira Delgado MD 04/25/2025Results Follow-Up [address] [place] [address] Sita Harrison NP CBC and differential, Ferritin, HCG, quantitative, lripyskac51/09/2025 10:15 AM EDTOffice Visit [facility] [address] [place] [address] Dylan Pompa MD Abnormal uterine bleeding (AUB)04/24/2025Telephone [facility] [address] [place] [address] Judy Sims MA 04/24/2025amboo flowsheet [facility] [address] [place] [address] Dylan Pompa MD 04/24/20258254Dpngoq59/08/2025 8:00 AM EDTOffice Visit [address] [place] [address] Sita Harrison NP Encounter for wellness examination (Primary Dx); Vaginal bleeding; Uhnmkeopoh25/08/2025Telephone [address] [place] [address] Thu Kunz MA 04/23/2025Telephone [facility] [address] [place] [facility] [address] Yadira Delgado MD 04/23/2025Telephone [facility] [place] [facility] [address] [place] [address] Kamila De Anda LPN 04/23/2025amboo flowsheet [facility] [address] [place] [facility] [address] Sita Harrison NP 04/23/2025Travelfrom Last 3 Months Immunizations ImmunizationAdministration DatesNext DueDTaP / Hep B / IPV2005,2005, 2005DTaP, Oxpcmvvhidp42/11/2009HPV, Pzgkjstytvvf51/12/2022Hep B, Adolescent or Nbxgdmivg2005Hib (PRP-T)2005,2005,2005IPV 02/24/2009Influenza, injectable, aclcbnbhjnsw73/09/2019Influenza, injectable, quadrivalent, preservative free07/22/2021MMR01/04/2007Meningococcal MCV4P 11/25/2021,03/01/2018Pneumococcal Conjugate PCV 7012/13/2005,2005, 2005Tdap03/01/20188816Gqxcmgwby12/21/2007 Family History Medical HistoryRelationNameCommentsHeart diseaseMaternal Grandmotherpulmonary issueOtherRelationNameStatusCommentsFatherAliveMaternal GrandmotherMotherAlive Other Social History Tobacco UseTypesPacks/DayYears UsedDateSmoking Tobacco: NeverSmokeless Tobacco: Never Tobacco Cessation:Counseling Given: Not Answered Alcohol UseStandard Drinks/WeekCommentsNever0 (1 standard drink = 0.6 oz pure alcohol)caffeine intake: 0PHQ-2AnswerDate RecordedPatient Health Questionnaire-2 Xrmbk742CommentsNoSex and Gender InformationValueDate Recorded Sex Assigned at BirthNot on fileLegal SbcTalzvu95/15/2023 7:25 PM EDTGender IdentityNot on fileSexual OrientationNot on file Last Filed Vital Signs Vital SignReadingTime TakenCommentsBlood Fehtzycp786/6611 2:19 PM EST Pavdj715204/23/2025 8:06 AM OTWUjlbzvkupdp04.4 ??C (97.5 ??F)01/14/2025 4:24 PM EDTRespiratory Dzph8061 3:30 PM EDTOxygen Vhmzbagzmt30%04/23/2025 8:06 AM EDTInhaled Oxygen Concentration--Aigttt71.3 kg (111 lb)05/19/2025 2:19 PM EST Htxlzz692.8 cm (5' 4.5 )12/05/2024 9:04 AM EDTBody Mass Index18.76012/05/2024 9:04 AM EDT Plan of Treatment Health MaintenanceDue DateLast DoneCommentsCOVID-19 Vaccine ( season) 501/12/2021, 12/29/2020, 12/08/2020Influenza Vaccine (#1)2026 07/22/2021, 04/24/2019Postponed from 03/17/2025 (Patient Refused)Pneumococcal Vaccine: Pediatrics (0 to 5 Years) and At-Risk Patients (6 to 64 Years)Aged Out 2005, 2005, 2005No longer eligible based on patient's age to complete this topic Procedures Procedure NamePriorityDate/TimeAssociated DiagnosisCommentsUS PELVIS NHWEEJXTWJWZIktjgck88/10/2025 11:25 AM EST Abnormal uterine bleeding (AUB) US PELVIS PIUKHGKGMRFCEhpxuym41/20/2025 9:20 AM EDT Abnormal uterine bleeding (AUB) POCT , LEAFFRrhmnlq56/09/2025 10:26 AM EDT Abnormal uterine bleeding (AUB) HCG, TOTAL, UJYyxscah29/08/2025 8:28 AM EDT Vaginal bleeding PYMTJXGJBgpfkyp20/08/2025 8:28 AM EDT Vaginal bleeding CBC (INCLUDES DIFF/PLT)Bszwzfh1904/23/2025 8:28 AM EDT Vaginal bleeding from Last 3 Months Results * US pelvis transvaginal (05/26/2025 11:25 AM EST) Only the most recent of2 resultswithin the time period is included. Anatomical RegionLateralityModalityPelvisUltrasoundStudy GAStudy DateStudy CHRISTINE Working CHRISTINE (Source)05/26/2025Specimen (Source)Anatomical Location / Laterality Collection Method / VolumeCollection TimeReceived Time Narrative 05/28/2025 1:21 PM EST Images from the original result were not included. ?? Obstetrics & Gynecology ? [address] ? [address] ? [address] ?[address], [facility] [address] ? [place] [address] [place] [address] ? - - - - - - - - - - - - - - - - - - - - - - - - - - - - - - - - - - - - - - - - - - - - - - - - - - - - - - - - - - - - - - - - - - Pelvic Ultrasound Patient name: Vilma Correa : 2005 (20 y.o.) Date of exam: 05/26/25 LMP: ??05/17/25 - - - - - - - - - - - - - - - - - - - - - - - - - - - - - - - Indication: abnormal uterine bleeding, recent TAB, prior ultrasound suspicious for retained products of conception Surgical History: no previous gynecological surgeries Method: Transvaginal ultrasound examination View: Adequate - - - - - - - - - - - - - - - - - - - - - - - - - - - - - - - Measurements: Uterus: 6.7 x 5.4 x 3.1 cm ??Volume: 58 cm?? Endometrial thickness: 9.9 mm Right ovary: 4.0 x 3.1 x 1.7 cm ??Volume: 10.8 cm?? Left ovary: 3.4 x 2.1 x 1.7 cm Volume: 6.4 cm?? - - - - - - - - - - - - - - - - - - - - - - - - - - - - - - - Findings: Uterus: The uterus is normal in size and contour. Position: Anterverted Malformations: 3D ultrasound shows the uterus and endometrium to have a normal contour. Myometrium: The myometrium is homogenous in echotexture, there are no overt fibroids. Fibroid(s): none Endometrium: The endometrium appears normal in contour and thickness, there are no overt polyps or submucosal fibroids visualized. ?? The endometrium has a vague triple stripe proliferative appearance. ?? There is are small areas of slight increased echogenicity within the endometrium. Cervix: The cervix appears unremarkable. - - - - - - - - - - - - - - - - - - - - - - - - - - - - - - - Right ovary: Visualized Morphology: multifollicular appearing Right adnexa: no overt adnexal mass - - - - - - - - - - - - - - - - - - - - - - - - - - - - - - - Left ovary: Visualized Morphology: multifollicular appearing Left adnexa: no overt adnexal mass - - - - - - - - - - - - - - - - - - - - - - - - - - - - - - - Cul de Sac: There is a minimal amount of sonolucent free fluid within the posterior cul-de-sac. - - - - - - - - - - - - - - - - - - - - - - - - - - - - - - - - - - - - - - - - - - - - - - - - - - - - - - - - - - - - - - - - - - Impression: The uterus is normal in size and contour. The myometrium is homogenous in echotexture. The endometrium appears normal in contour and thickness. There are several vague areas of slight increased echogenicity within the endometrium which could represent blood clots. ?? Both ovaries are visible and appear multifollicular in echotexture. There is no overt adnexal mass. There is a minimal amount of sonolucent free fluid visible within the posterior cul-de-sac. - - - - - - - - - - - - - - - - - - - - - - - - - - - - - - - - - - - - - - - - - - - - - - - - - - - - - - - - - - - - - - - - - - Ordering/Reading Provider: Dylan Pompa M.D. ??Lokie Engineer: Donovan Hanks RDMS Authorizing ProviderResult TypeResult Otto Pompa MDIMG US PROCEDURES Final Result * POCT , urine manually resulted (04/24/2025 10:26 AM EDT)Component ValueRef RangeTest MethodAnalysis TimePerformed AtPathologist SignaturePreg Test, UrNegativeNegativeSpecimen (Source)Anatomical Location / Laterality Collection Method / VolumeCollection TimeReceived WylaAstds44/09/2025 10:26 AM EDT Narrative Authorizing ProviderResult TypeResult Otto Pompa [facility]USOINT [facility] CARE TEST ENTER/EDIT ORDERABLESFinal Result * (ABNORMAL) CBC and differential (04/23/2025 8:28 AM EDT)ComponentValueRef RangeTest MethodAnalysis TimePerformed AtPathologist SignatureWHITE BLOOD CELL COUNT4.33.8 - 10.8 Thousand/uLQUESTRED BLOOD CELL COUNT4.753.80 - 5.10 Million/tQSKZZCBUXZFSJSON34.811.7 - 15.5 g/yBFXJSPARFWKIJRAY00.435.0 - 45.0 % QLGTKDUT57.380.0 - 100.0 xLSLWIGDEE34.127.0 - 33.0 jaRCNRUUOOV45.532.0 - 36.0 g/dLQUESTComment: For adults, a slight decrease in the calculated MCHC value (in the range of 30 to 32 g/dL) is most likely not clinically significant; however, it should be interpreted with caution in correlation with other red cell parameters and the patient's clinical condition. RDW13.511.0 - 15.0 %QUESTPLATELET FYVBH732155 - 400 Thousand/mAEDVGVARH79.77.5 - 12.5 fLQUESTABSOLUTE NEUTROPHILS1,466(L)1,500 - 7,800 cells/uLQUESTABSOLUTE LYMPHOCYTES2,700954 - 3,900 cells/uLQUESTABSOLUTE LRFVWODDC135171 - 950 cells/uL QUESTABSOLUTE MXWAIMCBRKT28620 - 500 cells/uLQUESTABSOLUTE JCRSSLCQJ626 - 200 cells/iTRDVWXHSKYDVWYGBN97.1%SCQFZFKZQOCRMKLA09.5%BAOAEINBSRUHQA98.9%QUEST EOSINOPHILS2.8%QUESTBASOPHILS0.7%QUESTSpecimen (Source)Anatomical Location / LateralityCollection Method / VolumeCollection TimeReceived TimeBloodVenous blood specimen / Dqbexbh9104/23/2025 8:28 AM EDT1 3:33 PM EDT Narrative Resulting Agency Comment Performing Organization Information ?Site ID: QTW ?Name: [facility] ?Address: [address] [place] [id number] ?Director: Maria T Guerrero Authorizing ProviderResult TypeResult StatusSaNovant Health [facility] NPMEADOWBROOK [facility] BLOOD ORDERABLES Final ResultPerforming OrganizationAddressCity/State/ZIP CodePhone Number [facility]ST * HCG, quantitative, (04/23/2025 8:28 AM EDT)ComponentValueRef Range Test MethodAnalysis TimePerformed AtPathologist SignatureHCG, TOTAL, QN<5 mIU/mLQUESTComment: ?Reference Range Non or premenopausal <5 Postmenopausal <10 Values from different assay methods may vary. The use of this assay to monitor or to diagnose patients with cancer or any condition unrelated to has not been cleared or approved by the FDA or the any commodity sales deliverer of the assay. Specimen (Source)Anatomical Location / LateralityCollection Method / Volume Collection TimeReceived TimeBloodVenous blood specimen / Zehnpyp5804/23/2025 8:28 AM EDT1 3:33 PM EDT Narrative Resulting Agency Comment Performing Organization Information ?Site ID: QPT ?Name: [facility] ?Address: [address] [place] [address], [address] [place] [address] ?Director: Victor M Guardado MD Authorizing ProviderResult TypeResult StatusSarah Kampfer NPLAB BLOOD ORDERABLES Final ResultPerforming OrganizationAddressCity/State/ZIP CodePhone Number [facility]ST * Ferritin (04/23/2025 8:28 AM EDT)ComponentValueRef RangeTest MethodAnalysis TimePerformed AtPathologist OrotjmbwqFCBSVATS1861 - 154 ng/mLQUESTSpecimen (Source)Anatomical Location / LateralityCollection Method / VolumeCollection TimeReceived TimeBloodVenous blood specimen / Frfdlkx9504/23/2025 8:28 AM EDT 04/23/2025 3:33 PM EDT Narrative Resulting Agency Comment Performing Organization Information ?Site ID: QPT ?Name: [facility] ?Address: [address] [place] [address], [address] [place] [address] ?Director: Victor M Guardado MD Authorizing ProviderResult TypeResult StatusSarah Kampfer NPLAB BLOOD ORDERABLES Final ResultPerforming OrganizationAddressCity/[facility] CodePhone Number [facility]ST from Last 3 Months Insurance [address] [place] [address] Care Teams Team MemberRelationshipSpecialtyStart DateEnd Date Yadira Delgado MD [address] [place] [address] PCP - GeneralFamily Medicine12/01/22 Karen Colbert NP [address] [place] [address] Nurse PractitionerFamily Medicine12/01/22
--- OUTSIDE RECORDS SUMMARY | 2025-07-07 00:25 | XMS_ITS | Clinical Summary ---
Author Organization [facility] tem Address [id number] [address] [place] [address] Care Team Providers Care Drugless Doctor Name Role Phone Yadira Delgado MD Primary Care Provider Allergies No known active allergies Medications * This document contains information received from the source organization and may not represent a complete record from that organization. MedicationSigDispense QuantityRefillsLast FilledStart DateEnd DateStatus norethindrone-e.estradioL-iron (ESTROSTEP FE) 1-20(5)/1-30(7) /1mg-35mcg (9) tablet Take 1 tablet by mouth in the morning.Active mupirocin (BACTROBAN) 2 % ointment Apply 1 Application topically in the morning and 1 Application before bedtime. Do all this for 7 days. 15 g 515Active methylPREDNISolone (MEDROL, JOHN,) 4 mg tablet follow package directions 21 tablet 5Active Active Problems ProblemNoted DateDiagnosed DateMajor depression, single lcydlpt5404/11/2021 Irritability and anger11/16/2020Mixed obsessional thoughts and acts10/06/2020 Major depressive disorder, single episode, nkpalygl97/20/2020Attention deficit hyperactivity disorder (ADHD), combined type08/08/2019Other eeafhtga41/23/2020 Encounters DateTypeDepartmentCare IggrOxstibnawdf42/20/2025 4:41 PM EST - 07/05/2025 6:56 PM ESTEmerOhio [facility] [address] [place] [phone] Clemente Gilman MD Arthralgia of right hand (Primary Dx); Dermatitis, unspecified Discharge Disposition: Home07/05/2025Travelfrom Last 3 Months Family History Medical HistoryRelationNameCommentsNo Known ProblemsFatherADD / ADHDMotherCOPD MotherDepressionMotherRelationNameStatusCommentsFatherAliveMotherAlive Social History Tobacco UseTypesPacks/DayYears UsedDateSmoking Tobacco: NeverSmokeless Tobacco: NeverAlcohol UseStandard Drinks/WeekCommentsNever0 (1 standard drink = 0.6 oz pure alcohol)AUDIT-CAnswerDate RecordedFrequency of Alcohol ConsumptionNever 08/01/2019Average Number of DrinksNot on file08/01/2019Frequency of Binge DrinkingNot on file08/01/2019ChildcareAnswerDate RecordedChildcareUnknown 12/24/2018EmploymentAnswerDate EqdgxxtkRtotwuqtvgUeetqjn25/10/2019Hunger ScreeningAnswerDate RecordedWithin the past 12 months we worried whether our food would run out before we got money to buy more.Never True11/03/2022Within the past 12 months the food we bought just didn't last and we didn't have money to get more.Never True3Purpose - LifeAnswerDate RecordedPurpose and direction in aybiCssumbf34/22/2021CommentsNoSex and Gender Information ValueDate RecordedSex Assigned at BirthNot on fileLegal EkrTtmodx16/04/2015 12:02 PM EDTGender IdentityNot on fileSexual OrientationNot on file Last Filed Vital Signs Vital SignReadingTime TakenCommentsBlood Jzzooabv751/6407/05/2025 4:07 PM EST Qqvyu845807/05/2025 6:56 PM UARWwdaslvtlkn99.8 ??C (98.2 ??F)07/05/2025 4:07 PM ESTRespiratory Lleg312509/05/2024 6:56 PM ESTOxygen Hqddamoxgh104%07/05/2025 6:56 PM ESTInhaled Oxygen Concentration--Ibxjsv64.9 kg (110 lb)07/05/2025 4:07 PM EST Ynreok770.1 cm (5' 5 )02/02/2024 5:07 PM EDTBody Mass Index18.307 5:07 PM EDT Plan of Treatment Health MaintenanceDue DateLast DoneCommentsDepression Emglpgmqo11/02/2017COVID- 19 Vaccine ( season)/12/2021, 12/29/2020, 12/08/2020 Influenza Ehoalil41/12/2021, 04/24/2019Adult BMI Upqiidyid90/20/2026 07/05/2025Tobacco Qolmvtcgk20DTaP,Tdap and Td Vaccines (6 - Td or Tdap), 02/24/2009, 2005, Additional history exists Medical Devices Not on file Procedures Procedure NamePriorityDate/TimeAssociated DiagnosisCommentsXR HAND RT MIN 3 VWS STAT109/05/2024 5:58 PM EST from Last 3 Months Results * X-ray hand right minimum 3 [...] acute osseous abnormality. Approved by Resident Heather [place], DO ??on 07/05/2025 6:46 PM Sami Salazar [...] Heather [place] DO on 07/05/2025 6:46 PM ISami MD have personally reviewed the image(s) and agree withand/or edited the report Finalized by Sami Del Castillo MD on 07/05/2025 7:02 PM Authorizing ProviderResult TypeResult StatusStevradha Gilman MDIMChris DIAGNOSTIC IMAGING ORDERABLESFinal Result from Last 3 Months Insurance [address] [place] [address] [address] [place] [address] [address] [place] [address] Advance Directives * Full Code (Latest Code Status on File) Date ActivatedDate InactivatedComments04/11/2021 12:35 PM04/12/2021 3:50 PM Care Teams Team MemberRelationshipSpecialtyStart DateEnd Date Yadira Delgado MD [address] [place] [address] PCP - GeneralFamily Ejimmrjk12/20/25
--- OUTSIDE RECORDS SUMMARY | 2025-07-07 00:25 | XMS_ITS | Encounter Summary ---
Author Organization [facility] Address [id number] [address] [place] [address] Care Team Providers Care Registered Physical Therapist Name Role Phone Yadira Delgado MD Primary Care Provider [phone] Encounter Details DateTypeDepartmentCare Team (Latest Contact Info)Oqrwjiamnxc03/20/2025Travel Social History Tobacco UseTypesPacks/DayYears UsedDateSmoking Tobacco: NeverSmokeless Tobacco: NeverAlcohol UseStandard Drinks/WeekCommentsNever0 (1 standard drink = 0.6 oz pure alcohol)AUDIT-CAnswerDate RecordedFrequency of Alcohol ConsumptionNever 08/01/2019Average Number of DrinksNot on file08/01/2019Frequency of Binge DrinkingNot on file08/01/2019ChildcareAnswerDate RecordedChildcareUnknown 12/24/2018EmploymentAnswerDate ZzpwmcerCidseskhqdZqtnyuy74/10/2019Hunger ScreeningAnswerDate RecordedWithin the past 12 months we worried whether our food would run out before we got money to buy more.Never True11/03/2022Within the past 12 months the food we bought just didn't last and we didn't have money to get more.Never True3Purpose - LifeAnswerDate RecordedPurpose and direction in cpqjZeihxso25/22/2021CommentsNoSex and Gender Information ValueDate RecordedSex Assigned at BirthNot on fileLegal UvwMiqgqm96/04/2015 12:02 PM EDTGender IdentityNot on fileSexual OrientationNot on filedocumented as of this encounter Plan of Treatment Not on file documented as of this encounter Visit Diagnoses Not on filedocumented in this encounter Care Teams Team MemberRelationshipSpecialtyStart DateEnd Date Yadira Delgado MD [address] [place] [address] PCP - GeneralFamily Mowvzoad65/20/25documented as of this encounter
== END 2025-07-07 00:48 | disposition home or self-care (01) ==
LOC: ER 07-07 00:21
PROVIDERS: Emergency Provider Internal Medicine; PCP Family Medicine
DX: R22.31 Localized swelling, mass and lump, right upper limb (principal)
CPT/HCPCS: 36415; 80048; 85007; 85027; 86140; 96374; 99284; J2919